=== PATIENT | female | born 1960 | race Caucasian/White ===

== ENCOUNTER 2017-01-02 19:47 | Inpatient (IN) | payer OTHER ==
[~2017-01-02] VITALS: Ht 157.5 cm; Wt 77.2 kg
[2017-01-02] MEDS ORDERED: morphine 4 MG/ML VIAL IV STA (23:00)
[2017-01-02] MEDS ORDERED: FAMOTIDINE 20 MG INJ IV STA (23:00)
[2017-01-02] MEDS ORDERED: SOD CHLORIDE 0.9% 500 ML IV STA (23:00)
[2017-01-02] MEDS ORDERED: ONDANSETRON 4 MG INJ IV STA (23:00)
[2017-01-02] MEDS ORDERED: LIDOCAINE/MYLANTA 40 ML BTL PO STA (23:00)
[2017-01-02 23:15] VITALS: TEMP 99.7
--- NOTE | 2017-01-02 23:44 | RADRPT ---
PROCEDURE: US Abdomen (right upper quadrant). CLINICAL INDICATION: Right upper quadrant abdomen pain. TECHNIQUE: Multiple real-time longitudinal and transverse images of the right upper quadrant of th e abdomen were acquired utilizing a curved array transducer. Images were reviewed on a high-resoluti on PACS workstation. COMPARISON: None FINDINGS: The liver is enlarged and diffusely increased in echogenicity. There is no focal hepatic lesion. Color Doppler and pulsed Doppler sonography demonstrate normal a ntegrade flow in the portal vein. Gallstones are present in the gallbladder. There is no gallbladder wall thickening. There is no per icholecystic fluid collection. The bile ducts are normal with the common bile duct measuring 5.3 mm in diameter. The visualized portions of the pancreas are unremarkable with obscuration of the tail of the pancrea s. No free fluid is present. The right kidney measures 10.1 cm. There is normal echogenicity of the right kidney. There is no perinephric fluid collection. No hydronephrosis, mass, or calculus is seen. IMPRESSION: 1. Hepatomegaly. 2. Fatty metamorphosis of the liver. 3. Gallstones in the gallbladder. No evidence of cholecystitis. 4. Otherwise unremarkable right upper quadrant abdomen ultrasound. RPTAT: QQ .Marquez Senior MD, MD Date Time Electronically viewed and signed by .Marquez Senior MD, on 01/02/2017 23:44 .R/
[2017-01-03] MEDS ORDERED: OMEG1CAP2 PO (01:28)
[2017-01-03] MEDS ORDERED: MULTI PO (01:28)
--- NOTE | 2017-01-03 02:02 | ERD ---
ER Documentation Chief Complaint Chief Complaint Epigastric pain radiating to back since 0700. emesis x1 this am HPI This is a 56-year-old female comes with epigastric pain radiating to the back since 700. Emesis 1. Non-bilious. No fevers no chills. Pain is mild to moderate intensity with no radiations. Patient says she has had this pain on and off in the past few weeks. Has tried Tylenol with no relief. ROS All systems reviewed and are negative except as per history of present illness. Medications Home Meds Reported Medications [place]-3 Acid Ethyl Esters (Lovaza) 1 Gm Capsule, 4 GM PO DAILY, CAP 01/03/17 Multivitamins* (Theragran*) 1 Tab Tab, 1 TAB PO DAILY, TAB 01/03/17 Allergies Allergies: Coded Allergies: No Known Allergy (Unverified , 01/02/17) PMhx/Soc History of Surgery: No Anesthesia Reaction: No Hx Neurological Disorder: No Hx Respiratory Disorders: No Hx Cardiac Disorders: No Hx Psychiatric Problems: No Hx Miscellaneous Medical Probl: No Hx Alcohol Use: Yes (Socially) Hx Substance Use: No Hx Tobacco Use: No Smoking Status: Never smoker Physical Exam Vitals Vital Signs Date Time Temp Pulse Resp B/P Pulse Ox O2 Delivery O2 Flow Rate FiO2 01/02/17 23:15 99.7 80 18 116/64 95 Room Air 01/02/17 20:29 102.1 108 16 125/67 98 Physical Exam Const: [] Head: Atraumatic Eyes: Normal Conjunctiva ENT: Normal External Ears, Nose and Mouth. Neck: Full range of motion..~ No meningismus. Resp: Clear to auscultation bilaterally Cardio: Regular rate and rhythm, no murmurs Abd: Soft, non tender, non distended. Normal bowel sounds Skin: No petechiae or rashes Back: No midline or flank tenderness Ext: No cyanosis, or edema Neur: Awake and alert Psych: Normal Mood and Affect Result Diagram: 01/02/17230901/02/172309 Results 24 hrs Laboratory Tests Test 01/02/17 23:10 01/02/17 23:20 White Blood Count 17.910^3/ul Red Blood Count 4.3610^6/ul Hemoglobin 13.0g/dl Hematocrit 38.2% Mean Corpuscular Volume 87.6fl Mean Corpuscular Hemoglobin 29.8pg Mean Corpuscular Hemoglobin Concent 34.0g/dl Red Cell Distribution Width 12.0% Platelet Count 33338^3/UL Mean Platelet Volume 9.7fl Neutrophils % 91.9% Lymphocytes % 2.5% Monocytes % 4.7% Eosinophils % 0.0% Basophils % 0.3% Nucleated Red Blood Cells % 0.0/100WBC Neutrophils # 16.510^3/ul Lymphocytes # 0.510^3/ul Monocytes # 0.810^3/ul Eosinophils # 0.010^3/ul Basophils # 0.110^3/ul Nucleated Red Blood Cells # 0.010^3/ul Sodium Level 139mmol/L Potassium Level 3.8mmol/L Chloride Level 101mmol/L Carbon Dioxide Level 23mmol/L Anion Gap 19 Blood Urea Nitrogen 14mg/dl Creatinine 0.60mg/dl Glucose Level 161mg/dl Calcium Level 10.2mg/dl Total Bilirubin 1.7mg/dl Direct Bilirubin 0.80mg/dl Indirect Bilirubin 0.9mg/dl Aspartate Amino Transf (AST/SGOT) 721IU/L Alanine Aminotransferase (ALT/SGPT) 470IU/L Alkaline Phosphatase 214IU/L Troponin I < 0.012ng/ml Total Protein 8.6g/dl Albumin 4.5g/dl Globulin 4.10g/dl Albumin/Globulin Ratio 1.09 Lipase 62U/L Urine Color JAZMYN Urine Clarity CLEAR Urine pH 6.0 Urine Specific [place] 1.024 Urine Ketones NEGATIVEmg/dL Urine Nitrite NEGATIVEmg/dL Urine Bilirubin 1+mg/dL Urine Urobilinogen 2+mg/dL Urine Leukocyte Esterase NEGATIVELeu/ul Urine Microscopic RBC 9/HPF Urine Microscopic WBC 2/HPF Urine Squamous Epithelial Cells FEW/HPF Urine Mucus FEW/HPF Urine Hemoglobin NEGATIVEmg/dL Urine Glucose NEGATIVEmg/dL Urine Total Protein 1+mg/dl Current Medications Medications (Trade) Dose Ordered Sig/Loreta Route PRN Reason Start Time Stop Time Status Last Admin Dose Admin Sodium Chloride (NS) 500 ml @ 500 mls/hr Q1H STAT IV 01/02/17 23:00 01/02/17 23:59 DC 01/02/17 23:36 Morphine Sulfate (morphine) 4 mg ONCE STAT IV 01/02/17 23:00 01/02/17 23:13 DC 01/02/17 23:36 Ondansetron HCl (Zofran Inj) 4 mg ONCE STAT IV 01/02/17 23:00 01/02/17 23:13 DC 01/02/17 23:36 Famotidine (Pepcid Iv) 20 mg ONCE STAT IV 01/02/17 23:00 01/02/17 23:13 DC 01/02/17 23:36 Miscellaneous Medication (Gi Cocktail (2)) 40 ml ONCE STAT PO 01/02/17 23:00 01/02/17 23:13 DC 01/02/17 23:36 Procedures/MDM Medical decision-makin-year-old female with biliary colic consistent with choledocholithiasis given the elevation of her LFTs and elevation of bilirubin. Patient will be admitted to Dr. Loya and Dr. Sorto has been consulted for surgery Departure Diagnosis: Primary Impression: Choledocholithiasis Condition: Serious BURAK RODRIGES Jan 03, 2017 02:02
[2017-01-03 02:27] VITALS: BP 112/58; PULSE 83; RESP 18; Ht 157.5 cm; Wt 77.2 kg
[2017-01-03] MEDS ORDERED: ACETAMINOPHEN 325 MG TAB PO PRN (03:00)
[2017-01-03] MEDS ORDERED: ONDANSETRON 4 MG INJ IV PRN (03:00)
[2017-01-03] MEDS ORDERED: NACL 0.9% 3 ML SYG IV SCH (03:00)
[2017-01-03] MEDS ORDERED: HYDROmorphONE 0.5 MG/0.5 ML SYG IV PRN (03:00)
[2017-01-03] MEDS: SOD CHLORIDE 0.9% 1,000 ML IV SCH ×2 (03:21→18:17)
[2017-01-03] MEDS: PIPER-TAZO 3.375 GM IV (PMX) 100 ML IVPB SCH ×4 (03:27→18:17)
--- NOTE | 2017-01-03 03:48 | HP ---
Date/Time of Note Date/Time of Note DATE: 01/03/17 TIME: 03:35 Assessment/Plan VTE Prophylaxis VTE Prophylaxis Intervention: SCD's Lines/Catheters IV C[facility]ter [facility] Saline Lock Assessment/Plan Chief Complaint/Hosp Course This is a 56-year-old female being admitted to the [facility] floor for: #1 right upper quadrant pain: Symptomatic cholelithiasis and/or choledocholithiasis. Patient does not have any fevers at this time or any jaundice. Ultrasound does not show any evidence of cholecystitis or ductal dilatation. She is not confused making acute cholangitis less likely at this time. She does though however have a elevated white blood cell count and transaminitis. At the current time we will treat with Zosyn. Will obtain an MRCP. Surgery was consulted via the ED. We will also consult GI. NPO. Normal saline iv fluid maintenance. zofran for nausea. Dilaudid for pain. #2 leukocytosis: Patient has elevated white blood cell count of 17,000. She does not have a fever and no signs of cholecystitis on ultrasound. However with signs of gallstones and transaminitis will at the current time treat with antibiotics for possible surgical prophylaxis as well as for possible progression to cholecystitis. Repeat in the a.m. #3 obesity: We will check a hemoglobin A1c, lipid panel, TSH #4 DVT GI prophylaxis: SCDs, famotidine Further treatment strategy will be implemented as per the clinical course Problems: HPI/ROS Admit Date/Time Admit Date/Time Jan 03, 2017 at 01:33 Hx of Present Illness Chief complaint: Right upper quadrant abdominal pain This is a 56-year-old female comes with right upper quadrant radiating to the back since 700. Emesis 1. Non-bilious. Denies fevers but did have some chills. Pain is mild to moderate intensity with no radiations. Patient says she has had this pain on and off in the past few weeks. Has tried Tylenol with no relief. Patient states that she had a similar pain before but it was 3 months ago. Denies any yellow color of the skin or the eyes. Allergies: NKDA Medications: None ROS Const: As per HPI Eyes : No pain discharge or redness or change in visual acuity ENT: No pain, sore throat, congestion, congestion, dysphagia or discharge Respiratory: No shortness of breath, cough, sputum, wheezing, or pleuritic pain Cardiovascular: No chest pain, palpitation, PND, or edema GI : As per HPI Genitourinary: No dysuria, hematuria, flank pain , discharge or CVA tenderness Musculoskeletal: No joint pain, back pain, neck pain, restricted range of motion in neck or joints Skin: No rash, bruising or hives Neuro: No headache, dizziness, syncope, seizure, focal weakness Endocrine: No polyuria, polydipsia, temperature intolerance Psych: No hallucination, depression, anxiety or suicidal ideation PMH/Family/Social Past Medical History Medical History: no pertinent history Past Surgical History Past Surgical Hx: no surgical history Family History Significant Family History: no pertinent family hx Social History Alcohol Use: none Smoking Status: Never smoker Drug Use: none Exam/Review of Systems Vital Signs Vitals Vital Signs Date Time Temp Pulse Resp B/P Pulse Ox O2 Delivery O2 Flow Rate FiO2 01/03/17 02:27 98.4 83 18 112/58 94 Room Air Exam Exam General: Patient is lying comfortably in bed in no acute distress. Nontoxic- appearing HEENT: Atraumatic, normocephalic. The pupils are equal, round and reactive. Extraocular motor are intact Neck: Supple with full range of motion. No rigidity or meningismus Chest: Nontender Lungs: Clear to auscultation bilaterally no crackles rales or wheezing Heart: Normal S1-S2, Regular rhythm and rate. No murmur, S3, or S4 Abdomen: Soft, mild tenderness to palpation of the right upper quadrant, nondistended, normal bowel sounds, no guarding . No CVA tenderness. Extremities: Normal to inspection, no edema no cyanosis Neurologic: Normal mental status, speech normal, cranial nerves II through XII are intact, motor and sensory are intact, no focal weakness Additional Comments PROCEDURE: US Abdomen (right upper quadrant). CLINICAL INDICATION: Right upper quadrant abdomen pain. TECHNIQUE: Multiple real-time longitudinal and transverse images of the right upper quadrant of the abdomen were acquired utilizing a curved array transducer. Images were reviewed on a high-resolution PACS workstation. COMPARISON: None FINDINGS: The liver is enlarged and diffusely increased in echogenicity. There is no focal hepatic lesion. Color Doppler and pulsed Doppler sonography demonstrate normal antegrade flow in the portal vein. Gallstones are present in the gallbladder. There is no gallbladder wall thickening. There is no pericholecystic fluid collection. The bile ducts are normal with the common bile duct measuring 5.3 mm in diameter. The visualized portions of the pancreas are unremarkable with obscuration of the tail of the pancreas. No free fluid is present. The right kidney measures 10.1 cm. There is normal echogenicity of the right kidney. There is no perinephric fluid collection. No hydronephrosis, mass, or calculus is seen. IMPRESSION: 1. Hepatomegaly. 2. Fatty metamorphosis of the liver. 3. Gallstones in the gallbladder. No evidence of cholecystitis. 4. Otherwise unremarkable right upper quadrant abdomen ultrasound. RPTAT: QQ .Marquez Senior MD, MD Date Time Electronically viewed and signed by .Marquez Senior MD, MD on 01/02/2017 23:44 .R/ CC: BURAK RODRIGES Labs Result Diagram: 01/02/17230901/02/172309 Medications Medications Current Medications Sodium Chloride (NS) 1,000 ml @ 80 mls/hr [id number] IV Last administered on 03:21; Admin Dose 80 MLS/HR; Start 01/03/17 at 02:52 Ondansetron HCl (Zofran Inj) 4 mg Q6H PRN IV NAUSEA AND/OR VOMITING; Start at 03:00 Acetaminophen (Tylenol Tab) 650 mg Q6H PRN PO PAIN LEVEL 1-3 OR FEVER; Start 01/03/17 at 03:00 Hydromorphone HCl (Dilaudid) 0.5 mg Q4H PRN IV SEVERE PAIN LEVEL 7-10; Start 01/03/17 at 03:00 Pantoprazole 40 mg 40 mg DAILY@06 IV ; Start 01/03/17 at 06:00 Piperacillin Sod/ Tazobactam Sod (Zosyn 3.375gm/ 100 ml (Pmx)) 100 ml @ 200 mls /hr Q6 IVPB Last administered on 01/03/17 03:27; Admin Dose 200 MLS/HR; Start 01/03/17 at 03:30 COLLEEN OROZCO Jan 03, 2017 03:45
[2017-01-03] MEDS: PANTOPRAZOLE 40 MG INJ IV SCH (06:07)
[2017-01-03 07:57] VITALS: BP 111/58; RESP 18
--- NOTE | 2017-01-03 13:12 | CONS ---
Date/Time of Note Date/Time of Note DATE: 01/03/17 TIME: 13:06 Assessment/Plan Assessment/Plan Chief Complaint/Hosp Course 1. Symptomatic cholelithiasis possible cholecystitis: r/b/a of lap ashley discussed w patient and ; patient decided to proceed w surgery -npo -lap ashley -ivf -abx -pain management 2. Transaminitis with elevated bili: ?choledocholithiasis: improving -as above -mrcp pending 3. Hepatomegaly with fatty liver -medical management -eventual weight loss; diet modification 4. Leukocytosis: likely 2/2 #1 -as above 5. Obesity: bmi 31 -diet and exercise optimization -encourage weight loss 6. Abdominal pain: 2/2 #1 -as above Thank you. Patient seen and examined in collaboration with Dr. Nahun Sorto. Problems: Consultation Date/Type/Reason Admit Date/Time Jan 03, 2017 at 01:33 Date of Consultation: Jan 03, 2017 Type of Consultation: Surgical Reason for Consultation gallstones Referring Provider: COLLEEN OROZCO Hx of Present Illness Lennie Shaw is a 56 yo woman who presented to the ED with complaints of abdominal pain x 1 day. Pain was described as strong and radiating from mid- abdomen to right flank and back. Associated symptoms include vomiting non- bloody bilious emesis.as well as chills. Has tried Tylenol with no relief. Therapies attempted include Tylenol. Gallbladder ultrasound shows cholelithiasis. General surgery was asked to evaluate. Constitutional: chills, No febrile Eyes: No discharge, No visual change ENT: No congestion Respiratory: No cough, No shortness of breath Cardiovascular: No chest pain, No edema, No lightheadedness Gastrointestinal: decreased appetite, other (as above) Genitourinary: No discharge, No dysuria, No hematuria Musculoskeletal: No back pain, No neck pain Skin: No bruising, No pruritis Neurologic: No confusion, No focal-weakness Endocrine: No polyuria Psychological: nl mood/affect, No anxiety, No confusion Past Medical History obesity Past Surgical History Past Surgical Hx: no surgical history Social History Alcohol Use: none Smoking Status: Never smoker Drug Use: none Exam/Review of Systems Vital Signs Vitals Vital Signs Date Time Temp Pulse Resp B/P Pulse Ox O2 Delivery O2 Flow Rate FiO2 01/03/17 07:57 99.0 90 18 111/58 96 01/03/17 02:27 Room Air Intake and Output 01/02/17 01/02/17 01/03/17 15:00 23:00 07:00 Intake Total 80 ml Balance 80 ml Exam Constitutional: alert, oriented Psych: nl mood/affect Head: atraumatic, normocephalic Eyes: nl lids, nl sclera ENMT: mucosa pink and moist, nl nasal mucosa & septum Neck: non-tender, supple Respiratory: clear to auscultation, normal air movement Cardiovascular: nl pulses, regular rate and rhythm Gastrointestinal: non-tender, soft, No tender Genitourinary - Female: nl adnexae, nl external genitalia Musculoskeletal: nl extremities to inspection, nl gait and stance Extremities: normal pulses Neurological: nl mental status, nl speech, nl strength Skin: nl turgor, rash or lesions Lymph: nl lymph nodes Results Result Diagram: 01/03/17 0542 01/03/17 0541 Results 24 hrs Laboratory Tests Test 01/02/17 23:10 01/02/17 23:20 01/03/17 05:41 01/03/17 05:42 White Blood Count 17.9 H 13.3 #H Red Blood Count 4.36 3.96 L Hemoglobin 13.0 12.2 Hematocrit 38.2 35.4 L Mean Corpuscular Volume 87.6 89.4 Mean Corpuscular Hemoglobin 29.8 30.8 Mean Corpuscular Hemoglobin Concent 34.0 34.5 Red Cell Distribution Width 12.0 12.2 Platelet Count 321 295 Mean Platelet Volume 9.7 9.9 Neutrophils % 91.9 H 89.5 H Lymphocytes % 2.5 L 5.1 L Monocytes % 4.7 4.5 Eosinophils % 0.0 0.1 Basophils % 0.3 0.2 Nucleated Red Blood Cells % 0.0 0.0 Neutrophils # 16.5 H 11.9 H Lymphocytes # 0.5 L 0.7 L Monocytes # 0.8 0.6 Eosinophils # 0.0 0.0 Basophils # 0.1 0.0 Nucleated Red Blood Cells # 0.0 0.0 Sodium Level 139 143 Potassium Level 3.8 3.8 Chloride Level 101 105 Carbon Dioxide Level 23 28 Anion Gap 19 H 14 Blood Urea Nitrogen 14 11 Creatinine 0.60 0.65 Glucose Level 161 124 Calcium Level 10.2 9.4 Total Bilirubin 1.7 H 2.6 H Direct Bilirubin 0.80 H 1.40 #H Indirect Bilirubin 0.9 1.2 H Aspartate Amino Transf (AST/SGOT) 721 H 612 H Alanine Aminotransferase (ALT/SGPT) 470 H 457 H Alkaline Phosphatase 214 H 181 H Troponin I < 0.012 Total Protein 8.6 H 7.3 # Albumin 4.5 3.7 Globulin 4.10 H 3.60 H Albumin/Globulin Ratio 1.09 1.02 Lipase 62 Urine Color JAZMYN Urine Clarity CLEAR Urine pH 6.0 Urine Specific [place] 1.024 Urine Ketones NEGATIVE Urine Nitrite NEGATIVE Urine Bilirubin 1+ H Urine Urobilinogen 2+ H Urine Leukocyte Esterase NEGATIVE Urine Microscopic RBC 9 H Urine Microscopic WBC 2 Urine Squamous Epithelial Cells FEW Urine Mucus FEW A Urine Hemoglobin NEGATIVE Urine Glucose NEGATIVE Urine Total Protein 1+ H Prothrombin Time 14.5 H Prothrombin Time Ratio 1.1 INR International Normalized Ratio 1.13 Activated Partial Thromboplast Time 29.8 Triglycerides Level 138 Cholesterol Level 146 LDL Cholesterol, Calculated 72 HDL Cholesterol 46 Cholesterol/HDL Ratio 3.1 Thyroid Stimulating Hormone (TSH) 0.501 Hemoglobin A1c 6.2 H Medications Medications Current Medications Sodium Chloride (NS) 1,000 ml @ 80 mls/hr [id number] IV Last administered on 03:21; Admin Dose 80 MLS/HR; Start 01/03/17 at 02:52 Ondansetron HCl (Zofran Inj) 4 mg Q6H PRN IV NAUSEA AND/OR VOMITING; Start at 03:00 Acetaminophen (Tylenol Tab) 650 mg Q6H PRN PO PAIN LEVEL 1-3 OR FEVER; Start 01/03/17 at 03:00 Hydromorphone HCl (Dilaudid) 0.5 mg Q4H PRN IV SEVERE PAIN LEVEL 7-10; Start 01/03/17 at 03:00 Pantoprazole 40 mg 40 mg DAILY@06 IV Last administered on 01/03/17 06:07; Admin Dose 40 MG; Start 01/03/17 at 06:00 Piperacillin Sod/ Tazobactam Sod (Zosyn 3.375gm/ 100 ml (Pmx)) 100 ml @ 200 mls /hr Q6 IVPB Last administered on 10/31/17at 11:36; Admin Dose 200 MLS/HR; Start 01/03/17 at 03:30 Influenza Virus Vaccine (Fluzone) 0.5 ml ONCE ONCE IM* ; Start 01/04/17 at 09:00 ; Stop 01/04/17 at 09:01 KATERIN CHERY NP Jan 03, 2017 13:12
[2017-01-03 14:27] VITALS: BP 104/57; RESP 18
--- NOTE | 2017-01-03 15:18 | RADRPT ---
PROCEDURE: MR Abdomen. CLINICAL INDICATION: Abdominal pain. TECHNIQUE: MRI abdomen without contrast was performed on the a high-resolution, high [facility] scanner. Patient was examined without IV contrast. Images were reviewed on a [employer] PACS workstation. COMPARISON: Correlation with ultrasound from 01/02/2017. FINDINGS: MRI Abdomen: The liver is enlarged measuring 21.5 cm in size and homogeneous in signal intensity. There is yared l signal intensity within the liver. No liver mass lesion or intrahepatic biliary dilatation is see n. Several stones are present within the gallbladder, ranging in size from 4 - 24 mm. There is gallblad ramon wall edema. No significant pericholecystic fluid is seen. The biliary tree is not dilated. No intrahepatic nor extrahepatic biliary dilatation is present. The spleen is normal in size and homogeneous in signal intensity. The stomach is partially collapse d but grossly unremarkable. The pancreas, as visualized, is equally unremarkable. No pancreatic le art is seen. The adrenal glands and kidneys are symmetrically normal. The aorta is of normal lamar marielos. There is no retroperitoneal lymphadenopathy. The bowel and mesentery, as visualized, are all unremarkable. IMPRESSION: 1. Cholelithiasis with gallbladder wall edema. The findings may represent acute calculus cholecysti tis in the correct clinical setting. No evidence of choledocholithiasis or biliary obstruction. 2. Hepatomegaly. RPTAT: HRAA .Delvis Maravilla MD, MD Date Time Electronically viewed and signed by .Delvis Maravilla MD, MD on 01/03/2017 15:18 .A/
--- NOTE | 2017-01-03 15:23 | CONS ---
Date/Time of Note Date/Time of Note DATE: 01/03/17 TIME: 14:54 Assessment/Plan Assessment/Plan Chief Complaint/Hosp Course Assessment: Right upper quadrant pain R/o Symptomatic cholelithiasis vs choledocholithiasis. Leukocytosis/improved Transaminitis/improved Plan: Pending results of MRCP possible ERCP tomorrow Endoscopy - risks/benefits/alternatives/indications of procedure and sedation/ anesthesia discussed with patient who states understanding and gives informed consent to proceed. PARQ held and questions were answered. 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 Abdominal pain was described an "inflammatory pain" not relieved or aggravated by anything in particular. Upon workup labs show leukocytosis 17,000, elevated amino transferase (AST 721, and ALT 6120), bilirubin of 1.7 lipase of 62. With reevaluation WBCs have decreased to 13.3 AST and ALT have also decreased, however bilirubin has increased to 2.6. An abdominal ultrasound was obtained and reveals, hepatomegaly, with fatty liver, gallstones in the gallbladder without evidence of cholecystitis, otherwise normal. MRCP ordered and currently pending. Evaluation patient states right upper quadrant pain as decreased and is currently 1/10 on the pain scale. No further complaints of nausea/vomiting, she denies constipation, diarrhea, hematemesis, hematochezia, or unintentional weight loss. He has never had a colonoscopy and there is no family history of colon cancer. With clinical presentation will proceed with ERCP if the MRCP is positive for choledocholithiasis. Discussed plan with patient who is in agreement Past Medical History: Obesity Allergies: No known allergies Family History: No family history of colon cancer Social History: Denies EtOH Denies smoking Denies drug use PHYSICAL EXAMINATION: GENERAL: Well developed, well nourished, alert & oriented x 3, in no acute distress SKIN: No lesions, no stigmata chronic liver disease, no evidence of bleeding diathesis LYMPHATIC: No palpable lymphadenopathy. HEAD: Normocephalic, atraumatic, no tenderness. EYES: Pupils equal reactive to light and accommodation, full extraocular movements, sclera clear, non-icteric, no discharge. EARS/NOSE AND THROAT: Ears normal, nose normal, oropharynx normal, oral membranes well hydrated without lesions. NECK: Supple, no masses, thyroid normal, JVP within normal limits, carotids normal without bruits. CHEST: Inspection within normal limits. CARDIOVASCULAR: Heart: Regular rate and rhythm, no murmurs, gallops or rubs. Peripheral pulses present within normal limits, no cyanosis, clubbing or edemas. No pulsatile abdominal mass RESPIRATORY: Lungs clear to auscultation and percussion, no wheezing, no rubs GASTROINTESTINAL AND LIVER: Abdomen: Soft, tenderness, non-distended, no hernias , no masses, no organomegaly, no ascites, no guarding, no rebound tenderness, normoactive bowel sounds. Rectal: Deferred. [no perianal disease, no masses, stool normal, occult blood negative.] GENITOURINARY: Female genitalia within normal limits. EXTREMITIES: No cyanosis, clubbing or edema. Problems: Consultation Date/Type/Reason Admit Date/Time Jan 03, 2017 at 01:33 Date of Consultation: Jan 03, 2017 Type of Consultation: GI Reason for Consultation Right upper quadrant pain Constitutional: chills, No febrile Eyes: No discharge, No visual change ENT: No congestion Respiratory: No cough, No shortness of breath Cardiovascular: No chest pain, No edema, No lightheadedness Gastrointestinal: decreased appetite, other (as above) Genitourinary: No discharge, No dysuria, No hematuria Musculoskeletal: No back pain, No neck pain Skin: No bruising, No pruritis Neurologic: No confusion, No focal-weakness Endocrine: No polyuria Psychological: nl mood/affect Past Surgical History Past Surgical Hx: no surgical history Social History Alcohol Use: none Smoking Status: Never smoker Drug Use: none Exam/Review of Systems Vital Signs Vitals Vital Signs Date Time Temp Pulse Resp B/P Pulse Ox O2 Delivery O2 Flow Rate FiO2 01/03/17 14:27 99.8 86 18 104/57 93 01/03/17 02:27 Room Air Intake and Output 01/02/17 01/02/17 01/03/17 15:00 23:00 07:00 Intake Total 80 ml Balance 80 ml Results Result Diagram: 01/03/17 0542 01/03/17 0541 Results 24 hrs Laboratory Tests Test 01/02/17 23:10 01/02/17 23:20 01/03/17 05:41 01/03/17 05:42 White Blood Count 17.9 H 13.3 #H Red Blood Count 4.36 3.96 L Hemoglobin 13.0 12.2 Hematocrit 38.2 35.4 L Mean Corpuscular Volume 87.6 89.4 Mean Corpuscular Hemoglobin 29.8 30.8 Mean Corpuscular Hemoglobin Concent 34.0 34.5 Red Cell Distribution Width 12.0 12.2 Platelet Count 321 295 Mean Platelet Volume 9.7 9.9 Neutrophils % 91.9 H 89.5 H Lymphocytes % 2.5 L 5.1 L Monocytes % 4.7 4.5 Eosinophils % 0.0 0.1 Basophils % 0.3 0.2 Nucleated Red Blood Cells % 0.0 0.0 Neutrophils # 16.5 H 11.9 H Lymphocytes # 0.5 L 0.7 L Monocytes # 0.8 0.6 Eosinophils # 0.0 0.0 Basophils # 0.1 0.0 Nucleated Red Blood Cells # 0.0 0.0 Sodium Level 139 143 Potassium Level 3.8 3.8 Chloride Level 101 105 Carbon Dioxide Level 23 28 Anion Gap 19 H 14 Blood Urea Nitrogen 14 11 Creatinine 0.60 0.65 Glucose Level 161 124 Calcium Level 10.2 9.4 Total Bilirubin 1.7 H 2.6 H Direct Bilirubin 0.80 H 1.40 #H Indirect Bilirubin 0.9 1.2 H Aspartate Amino Transf (AST/SGOT) 721 H 612 H Alanine Aminotransferase (ALT/SGPT) 470 H 457 H Alkaline Phosphatase 214 H 181 H Troponin I < 0.012 Total Protein 8.6 H 7.3 # Albumin 4.5 3.7 Globulin 4.10 H 3.60 H Albumin/Globulin Ratio 1.09 1.02 Lipase 62 Urine Color JAZMYN Urine Clarity CLEAR Urine pH 6.0 Urine Specific Wanda 1.024 Urine Ketones NEGATIVE Urine Nitrite NEGATIVE Urine Bilirubin 1+ H Urine Urobilinogen 2+ H Urine Leukocyte Esterase NEGATIVE Urine Microscopic RBC 9 H Urine Microscopic WBC 2 Urine Squamous Epithelial Cells FEW Urine Mucus FEW A Urine Hemoglobin NEGATIVE Urine Glucose NEGATIVE Urine Total Protein 1+ H Prothrombin Time 14.5 H Prothrombin Time Ratio 1.1 INR International Normalized Ratio 1.13 Activated Partial Thromboplast Time 29.8 Triglycerides Level 138 Cholesterol Level 146 LDL Cholesterol, Calculated 72 HDL Cholesterol 46 Cholesterol/HDL Ratio 3.1 Thyroid Stimulating Hormone (TSH) 0.501 Hemoglobin A1c 6.2 H Medications Medications Current Medications Sodium Chloride (NS) 1,000 ml @ 80 mls/hr [id number] IV Last administered on 03:21; Admin Dose 80 MLS/HR; Start 01/03/17 at 02:52 Ondansetron HCl (Zofran Inj) 4 mg Q6H PRN IV NAUSEA AND/OR VOMITING; Start at 03:00 Acetaminophen (Tylenol Tab) 650 mg Q6H PRN PO PAIN LEVEL 1-3 OR FEVER; Start 01/03/17 at 03:00 Hydromorphone HCl (Dilaudid) 0.5 mg Q4H PRN IV SEVERE PAIN LEVEL 7-10; Start 01/03/17 at 03:00 Pantoprazole 40 mg 40 mg DAILY@06 IV Last administered on 01/03/17 06:07; Admin Dose 40 MG; Start 01/03/17 at 06:00 Piperacillin Sod/ Tazobactam Sod (Zosyn 3.375gm/ 100 ml (Pmx)) 100 ml @ 200 mls /hr Q6 IVPB Last administered on 01/03/17 11:36; Admin Dose 200 MLS/HR; Start 01/03/17 at 03:30 Influenza Virus Vaccine (Fluzone) 0.5 ml ONCE ONCE IM* ; Start 01/04/17 at 09:00 ; Stop 01/04/17 at 09:01 ALFREDA ZAYAS Jan 03, 2017 15:23
[2017-01-03 20:00] VITALS: BP 120/65; RESP 19
[2017-01-04] MEDS: PIPER-TAZO 3.375 GM IV (PMX) 100 ML IVPB SCH ×5 (00:17→23:46)
[2017-01-04 02:00] VITALS: BP 116/62; RESP 19
[2017-01-04] MEDS: SOD CHLORIDE 0.9% 1,000 ML IV SCH ×3 (05:42→20:45)
[2017-01-04] MEDS: PANTOPRAZOLE 40 MG INJ IV SCH (05:42)
[2017-01-04 07:35] VITALS: BP 110/63; RESP 20
[2017-01-04] MEDS ORDERED: INFLUENZA VIRUS VACCINE 0.5 ML (DISPENSING) IM* ONE (09:00)
--- NOTE | 2017-01-04 11:51 | PN ---
Date/Time of Note Date/Time of Note DATE: 01/04/17 TIME: 11:43 Assessment/Plan VTE Prophylaxis VTE Prophylaxis Intervention: ambulation Lines/Catheters [facility] Peripheral IV Assessment/Plan Chief Complaint/Hosp Course 1. Symptomatic cholelithiasis possible acute calculus cholecystitis -Surgery evaluation appreciated. Plan is eventual lap versus open cholecystectomy, tentatively scheduled on 01/06/2017. -Start clear diet as tolerated if okay with surgery. Continue IV fluids, antibiotics and pain control. 2. Transaminase elevation with hyperbilirubinemia, likely secondary to #1. MRCP did not reveal any choledocholithiasis. -GI evaluation appreciated and we will follow their recommendations. - For now, we will monitor LFTs and obtain a Hep panel.F/u with intraoperative liver biopsy 3.Leukocytosis, likely secondary to #1. Resolved. -Treatment per #1. 4. Hepatomegaly with fatty liver -Lifestyle modification advised. 5. Obesity -Weight reduction advised. Patient is seen in collaboration with Dr. Corley. Problems: Subjective 24 Hr Interval Summary Free Text/Dictation No acute distress. Exam/Review of Systems Vital Signs Vitals Vital Signs Date Time Temp Pulse Resp B/P Pulse Ox O2 Delivery O2 Flow Rate FiO2 01/04/17 07:35 98.0 71 20 110/63 97 01/03/17 02:27 Room Air Intake and Output 01/03/17 01/03/17 01/04/17 15:00 23:00 07:00 Intake Total 100 ml 1000 ml 1200 ml Balance 100 ml 1000 ml 1200 ml Exam General: Well developed,adequately built obese female, not in any acute distress . HEENT: Normocephalic, Atraumatic, No laceration or hematoma; Eyes: PEERL, Conjunctiva clear,Mildly icteric sclera. Neck: Supple without any lymphadenopathy, nontender, no JVD, no carotid bruits, trachea midline, no thyromegaly Cardiac: S1, S2 auscultated, regular rhythm and rate, no mumurs or gallop Pulmonary: Normal respiratory effort. Chest clear to auscultation bilaterally, no adventitious breath sounds GI: With right upper quadrant tenderness. Otherwise, abdomen normal to inspection. Soft,non- distended, no masses, no rebound tenderness or guarding. Bowel sounds active on all four quadrants Genitourinary: Deferred Extremities: No cyanosis, clubbing, or edema. Pulses [2+] bilaterally. Full ROM on all four extremities. No focal weakness appreciated. Neurologic: Alert to person, place, time, and situation. Affect appropriate, intact sensation. Skin: Clean,dry, and intact. No ecchymosis, no rashes, or lesions Results Result Diagram: 01/04/17 0531 01/04/17 0531 Results 24 hrs Laboratory Tests Test 01/04/17 05:31 White Blood Count 6.6 # Red Blood Count 3.97 L Hemoglobin 11.8 L Hematocrit 36.3 L Mean Corpuscular Volume 91.4 Mean Corpuscular Hemoglobin 29.7 Mean Corpuscular Hemoglobin Concent 32.5 Red Cell Distribution Width 12.9 Platelet Count 269 Mean Platelet Volume 10.0 Neutrophils % 65.2 Lymphocytes % 22.3 Monocytes % 6.4 Eosinophils % 4.9 Basophils % 0.6 Nucleated Red Blood Cells % 0.0 Neutrophils # 4.3 Lymphocytes # 1.5 Monocytes # 0.4 Eosinophils # 0.3 Basophils # 0.0 Nucleated Red Blood Cells # 0.0 Sodium Level 146 H Potassium Level 3.6 Chloride Level 106 Carbon Dioxide Level 26 Anion Gap 18 H Blood Urea Nitrogen 10 Creatinine 0.70 Glucose Level 104 Calcium Level 8.7 Total Bilirubin 3.2 H Direct Bilirubin 2.30 #H Indirect Bilirubin 0.9 Aspartate Amino Transf (AST/SGOT) 241 H Alanine Aminotransferase (ALT/SGPT) 333 H Alkaline Phosphatase 207 H Total Protein 7.2 Albumin 4.1 Globulin 3.10 Albumin/Globulin Ratio 1.32 Medications Medications Current Medications Sodium Chloride (NS) 1,000 ml @ 80 mls/hr [id number] IV Last administered on 01/04t 05:42; Admin Dose 80 MLS/HR; Start 01/03/17 at 02:52 Ondansetron HCl (Zofran Inj) 4 mg Q6H PRN IV NAUSEA AND/OR VOMITING; Start at 03:00 Acetaminophen (Tylenol Tab) 650 mg Q6H PRN PO PAIN LEVEL 1-3 OR FEVER; Start 01/03/17 at 03:00 Hydromorphone HCl (Dilaudid) 0.5 mg Q4H PRN IV SEVERE PAIN LEVEL 7-10; Start 01/03/17 at 03:00 Pantoprazole 40 mg 40 mg DAILY@06 IV Last administered on 01/04/17 05:42; Admin Dose 40 MG; Start 01/03/17 at 06:00 Piperacillin Sod/ Tazobactam Sod (Zosyn 3.375gm/ 100 ml (Pmx)) 100 ml @ 200 mls /hr Q6 IVPB Last administered on 01/04/17 05:43; Admin Dose 200 MLS/HR; Start 01/03/17 at 03:30 IVELISSE LOMELI NP Jan 04, 2017 11:51
--- NOTE | 2017-01-04 12:15 | PN ---
Date/Time of Note Date/Time of Note DATE: 01/04/17 TIME: 12:10 Assessment/Plan Lines/Catheters IV Catheter Type (from Nrs): Peripheral IV Assessment/Plan Chief Complaint/Hosp Course 1. Symptomatic cholelithiasis possible cholecystitis: r/b/a of lap ashley discussed w patient and ; patient decided to proceed w surgery- scheduled for monday -lap ashley -ivf -abx -pain management 2. Transaminitis with elevated bili: no choledocholithiasis per MRI: improving -as above -further workup for liver disease per gi 3. Hepatomegaly with fatty liver -medical management -eventual weight loss; diet modification 4. Leukocytosis: likely 2/2 #1 normalized -as above 5. Obesity: bmi 31 -diet and exercise optimization -encourage weight loss 6. Abdominal pain: 2/2 #1: improved -as above 7. Hypernatremia: -sodium optimization; judicious fluids Thank you. Patient seen and examined in collaboration with Dr. Nahun Sorto. Problems: Subjective 24 Hr Interval Summary Feels well. No c/o abdominal pain. Pending lap ashley monday. MRCP noted. No fevers, chills, sob, congested cough, cp, palpitations, leija, dizziness, n/v/d/ dysuria. Exam/Review of Systems Vital Signs Vitals Vital Signs Date Time Temp Pulse Resp B/P Pulse Ox O2 Delivery O2 Flow Rate FiO2 01/04/17 07:35 98.0 71 20 110/63 97 01/03/17 02:27 Room Air Intake and Output 01/03/17 01/03/17 01/04/17 15:00 23:00 07:00 Intake Total 100 ml 1000 ml 1200 ml Balance 100 ml 1000 ml 1200 ml Exam Free Text/Dictation Constitutional: alert, oriented Psych: nl mood/affect Head: atraumatic, normocephalic Eyes: nl lids, nl sclera ENMT: mucosa pink and moist, nl nasal mucosa & septum; eyes slightly icteric Neck: non-tender, supple Respiratory: clear to auscultation, normal air movement Cardiovascular: nl pulses, regular rate and rhythm Gastrointestinal: non-tender, soft, negative long's on palpation No tender Genitourinary - Female: nl adnexae, nl external genitalia Musculoskeletal: nl extremities to inspection, nl gait and stance Extremities: normal pulses Neurological: nl mental status, nl speech, nl strength Skin: nl turgor, rash or lesions Lymph: nl lymph nodes Results Result Diagram: 01/04/17 0531 01/04/17 0531 KATERIN CHERY NP Jan 04, 2017 12:15
--- NOTE | 2017-01-04 14:00 | PN ---
Date/Time of Note Date/Time of Note DATE: 01/04/17 TIME: 13:59 Assessment/Plan VTE Prophylaxis VTE Prophylaxis Intervention: SCD's Lines/Catheters IV Catheter Type (from Nrs): Peripheral IV Assessment/Plan Chief Complaint/Hosp Course Assessment: Right upper quadrant pain/improving R/o Symptomatic cholelithiasis vs choledocholithiasis. Leukocytosis/improved Transaminitis/improved Plan: MRCP- negative Plan is for laparoscopic cholecystectomy on Monday Transaminitis continue to improve- bili elevated- will monitor Patient seen in collaboration with PHYSICAL EXAMINATION: GENERAL: Well developed, well nourished, alert & oriented x 3, in no acute distress SKIN: No lesions, no stigmata chronic liver disease, no evidence of bleeding diathesis LYMPHATIC: No palpable lymphadenopathy. HEAD: Normocephalic, atraumatic, no tenderness. EYES: Pupils equal reactive to light and accommodation, full extraocular movements, sclera clear, non-icteric, no discharge. EARS/NOSE AND THROAT: Ears normal, nose normal, oropharynx normal, oral membranes well hydrated without lesions. NECK: Supple, no masses, thyroid normal, JVP within normal limits, carotids normal without bruits. CHEST: Inspection within normal limits. CARDIOVASCULAR: Heart: Regular rate and rhythm, no murmurs, gallops or rubs. Peripheral pulses present within normal limits, no cyanosis, clubbing or edemas. No pulsatile abdominal mass RESPIRATORY: Lungs clear to auscultation and percussion, no wheezing, no rubs GASTROINTESTINAL AND LIVER: Abdomen: Soft, tenderness, non-distended, no hernias , no masses, no organomegaly, no ascites, no guarding, no rebound tenderness, normoactive bowel sounds. Rectal: Deferred. [no perianal disease, no masses, stool normal, occult blood negative.] GENITOURINARY: Female genitalia within normal limits. EXTREMITIES: No cyanosis, clubbing or edema. Problems: Exam/Review of Systems Vital Signs Vitals Vital Signs Date Time Temp Pulse Resp B/P Pulse Ox O2 Delivery O2 Flow Rate FiO2 01/04/17 07:35 98.0 71 20 110/63 97 01/03/17 02:27 Room Air Intake and Output 01/03/17 01/03/17 01/04/17 15:00 23:00 07:00 Intake Total 100 ml 1000 ml 1200 ml Balance 100 ml 1000 ml 1200 ml Results Result Diagram: 01/04/1731 01/04/1731 Results 24 hrs Laboratory Tests Test 01/04/17 05:31 White Blood Count 6.6 # Red Blood Count 3.97 L Hemoglobin 11.8 L Hematocrit 36.3 L Mean Corpuscular Volume 91.4 Mean Corpuscular Hemoglobin 29.7 Mean Corpuscular Hemoglobin Concent 32.5 Red Cell Distribution Width 12.9 Platelet Count 269 Mean Platelet Volume 10.0 Neutrophils % 65.2 Lymphocytes % 22.3 Monocytes % 6.4 Eosinophils % 4.9 Basophils % 0.6 Nucleated Red Blood Cells % 0.0 Neutrophils # 4.3 Lymphocytes # 1.5 Monocytes # 0.4 Eosinophils # 0.3 Basophils # 0.0 Nucleated Red Blood Cells # 0.0 Sodium Level 146 H Potassium Level 3.6 Chloride Level 106 Carbon Dioxide Level 26 Anion Gap 18 H Blood Urea Nitrogen 10 Creatinine 0.70 Glucose Level 104 Calcium Level 8.7 Total Bilirubin 3.2 H Direct Bilirubin 2.30 #H Indirect Bilirubin 0.9 Aspartate Amino Transf (AST/SGOT) 241 H Alanine Aminotransferase (ALT/SGPT) 333 H Alkaline Phosphatase 207 H Total Protein 7.2 Albumin 4.1 Globulin 3.10 Albumin/Globulin Ratio 1.32 Medications Medications Current Medications Sodium Chloride (NS) 1,000 ml @ 80 mls/hr [id number] IV Last administered on 01/04 05:42; Admin Dose 80 MLS/HR; Start 01/03/17 at 02:52 Ondansetron HCl (Zofran Inj) 4 mg Q6H PRN IV NAUSEA AND/OR VOMITING; Start at 03:00 Acetaminophen (Tylenol Tab) 650 mg Q6H PRN PO PAIN LEVEL 1-3 OR FEVER; Start 01/03/17 at 03:00 Hydromorphone HCl (Dilaudid) 0.5 mg Q4H PRN IV SEVERE PAIN LEVEL 7-10; Start 01/03/17 at 03:00 Pantoprazole 40 mg 40 mg DAILY@06 IV Last administered on 01/04/17 05:42; Admin Dose 40 MG; Start 01/03/17 at 06:00 Piperacillin Sod/ Tazobactam Sod (Zosyn 3.375gm/ 100 ml (Pmx)) 100 ml @ 200 mls /hr Q6 IVPB Last administered on 01/04/17t 12:27; Admin Dose 200 MLS/HR; Start 01/03/17 at 03:30 ALFREDA ZAYAS Jan 04, 2017 14:00
[2017-01-04 14:51] VITALS: BP 121/62; RESP 18
[2017-01-04] MEDS: FAMOTIDINE 20 MG INJ IV SCH (20:45)
[2017-01-04 20:51] VITALS: BP 129/68; RESP 18
[2017-01-05 02:49] VITALS: BP 152/70; RESP 16
[2017-01-05 03:45] VITALS: PULSE 61
[2017-01-05] MEDS: PIPER-TAZO 3.375 GM IV (PMX) 100 ML IVPB SCH ×3 (05:10→17:07)
[2017-01-05 07:59] VITALS: BP 115/64; RESP 18
[2017-01-05] MEDS: FAMOTIDINE 20 MG INJ IV SCH ×2 (08:26→20:27)
[2017-01-05] MEDS: SOD CHLORIDE 0.9% 1,000 ML IV SCH (08:30)
--- NOTE | 2017-01-05 10:00 | PN ---
Date/Time of Note Date/Time of Note DATE: 01/05/17 TIME: 09:55 Assessment/Plan VTE Prophylaxis VTE Prophylaxis Intervention: ambulation, SCD's Lines/Catheters [facility] Peripheral IV Urinary Cath still in place: No Assessment/Plan Chief Complaint/Hosp Course Assessment: Right upper quadrant pain/improving R/o Symptomatic cholelithiasis vs choledocholithiasis. Leukocytosis/improved Transaminitis/continue to improve Plan: Plan is for laparoscopic cholecystectomy tomorrow Transaminitis continue to improve- bili now WNL Patient seen in collaboration with Subjective: Course reviewed with nursing staff Patient interviewed and examined All labs, imaging and other results reviewed The patient doing very well, currently denies nausea/vomiting, states abd pain is much better 2/10 plan for surgery tomorrow. PHYSICAL EXAMINATION: GENERAL: Well developed, well nourished, alert & oriented x 3, in no acute distress SKIN: No lesions, no stigmata chronic liver disease, no evidence of bleeding diathesis LYMPHATIC: No palpable lymphadenopathy. HEAD: Normocephalic, atraumatic, no tenderness. EYES: Pupils equal reactive to light and accommodation, full extraocular movements, sclera clear, non-icteric, no discharge. EARS/NOSE AND THROAT: Ears normal, nose normal, oropharynx normal, oral membranes well hydrated without lesions. NECK: Supple, no masses, thyroid normal, JVP within normal limits, carotids normal without bruits. CHEST: Inspection within normal limits. CARDIOVASCULAR: Heart: Regular rate and rhythm, no murmurs, gallops or rubs. Peripheral pulses present within normal limits, no cyanosis, clubbing or edemas. No pulsatile abdominal mass RESPIRATORY: Lungs clear to auscultation and percussion, no wheezing, no rubs GASTROINTESTINAL AND LIVER: Abdomen: Soft, tenderness, non-distended, no hernias , no masses, no organomegaly, no ascites, no guarding, no rebound tenderness, normoactive bowel sounds. Rectal: Deferred. [no perianal disease, no masses, stool normal, occult blood negative.] GENITOURINARY: Female genitalia within normal limits. EXTREMITIES: No cyanosis, clubbing or edema. Problems: Exam/Review of Systems Vital Signs Vitals Vital Signs Date Time Temp Pulse Resp B/P Pulse Ox O2 Delivery O2 Flow Rate FiO2 01/05/17 07:59 97.9 60 18 115/64 96 01/03/17 02:27 Room Air Intake and Output 01/04/17 01/04/17 01/05/17 15:00 23:00 07:00 Intake Total 100 ml 1100 ml 1050 ml Balance 100 ml 1100 ml 1050 ml Results Result Diagram: 01/05/17 0438 01/05/17 0438 Results 24 hrs Laboratory Tests Test 01/05/17 04:38 White Blood Count 6.1 Red Blood Count 3.87 L Hemoglobin 11.7 L Hematocrit 35.5 L Mean Corpuscular Volume 91.7 Mean Corpuscular Hemoglobin 30.2 Mean Corpuscular Hemoglobin Concent 33.0 Red Cell Distribution Width 12.9 Platelet Count 282 Mean Platelet Volume 10.3 Neutrophils % 53.2 Lymphocytes % 28.4 Monocytes % 8.4 Eosinophils % 8.7 H Basophils % 1.0 Nucleated Red Blood Cells % 0.0 Neutrophils # 3.2 Lymphocytes # 1.7 Monocytes # 0.5 Eosinophils # 0.5 Basophils # 0.1 Nucleated Red Blood Cells # 0.0 Sodium Level 144 Potassium Level 3.5 Chloride Level 109 Carbon Dioxide Level 27 Anion Gap 12 Blood Urea Nitrogen 8 Creatinine 0.70 Glucose Level 97 Calcium Level 8.9 Total Bilirubin 1.2 # Direct Bilirubin 0.50 #H Indirect Bilirubin 0.7 Aspartate Amino Transf (AST/SGOT) 132 H Alanine Aminotransferase (ALT/SGPT) 255 H Alkaline Phosphatase 186 H Total Protein 6.9 Albumin 3.4 Globulin 3.50 H Albumin/Globulin Ratio 0.97 Medications Medications Current Medications Sodium Chloride (NS) 1,000 ml @ 80 mls/hr [id number] IV Last administered on 01/05t 08:30; Admin Dose 80 MLS/HR; Start 01/03/17 at 02:52 Ondansetron HCl (Zofran Inj) 4 mg Q6H PRN IV NAUSEA AND/OR VOMITING; Start at 03:00 Acetaminophen (Tylenol Tab) 650 mg Q6H PRN PO PAIN LEVEL 1-3 OR FEVER; Start 01/03/17 at 03:00 Hydromorphone HCl 0.5 mg 0.5 mg Q4H PRN IV SEVERE PAIN LEVEL 7-10; Start 01/03 at 03:00 Piperacillin Sod/ Tazobactam Sod (Zosyn 3.375gm/ 100 ml (Pmx)) 100 ml @ 200 mls /hr Q6 IVPB Last administered on 01/05/17 05:10; Admin Dose 200 MLS/HR; Start 01/03/17 at 03:30 Famotidine (Pepcid Iv) 20 mg Q12 IV Last administered on 01/05/17 08:26; Admin Dose 20 MG; Start 01/04/17 at 21:00 ALFREDA ZAYAS Jan 05, 2017 10:00
--- NOTE | 2017-01-05 10:39 | PN ---
Date/Time of Note Date/Time of Note DATE: 01/05/17 TIME: 10:19 Assessment/Plan Lines/Catheters IV Catheter Type (from [facility]): Peripheral IV Landon in Place (from [facility]): No Assessment/Plan Chief Complaint/Hosp Course 1. Symptomatic cholelithiasis possible cholecystitis: r/b/a of lap ashley discussed w patient and ; patient decided to proceed w surgery- scheduled tomorrow -lap ashley -ivf -abx -pain management 2. Transaminitis with elevated bili: no choledocholithiasis per MRI: improving -as above -further workup for liver disease per gi 3. Hepatomegaly with fatty liver -medical management -eventual weight loss; diet modification 4. Leukocytosis: likely 2/2 #1 normalized -as above 5. Obesity: bmi 31 -diet and exercise optimization -encourage weight loss 6. Abdominal pain: 2/2 #1: improved -as above 7. Hypernatremia: improved -sodium optimization; judicious fluids Thank you. Patient seen and examined in collaboration with Dr. Nahun Sorto. Problems: Subjective 24 Hr Interval Summary Feels well. Pending surgery tomorrow. No c/o abdominal pain/discomfort. No fevers, chills, sob, congested cough, cp, palpitations, leija, dizziness, n/v/d/ dysuria. Exam/Review of Systems Vital Signs Vitals Vital Signs Date Time Temp Pulse Resp B/P Pulse Ox O2 Delivery O2 Flow Rate FiO2 01/05/17 07:59 97.9 60 18 115/64 96 01/03/17 02:27 Room Air Intake and Output 01/04/17 01/04/17 01/05/17 15:00 23:00 07:00 Intake Total 100 ml 1100 ml 1050 ml Balance 100 ml 1100 ml 1050 ml Exam Free Text/Dictation Constitutional: alert, oriented Psych: nl mood/affect Head: atraumatic, normocephalic Eyes: nl lids, nl sclera ENMT: mucosa pink and moist, nl nasal mucosa & septum; eyes slightly icteric Neck: non-tender, supple Respiratory: clear to auscultation, normal air movement Cardiovascular: nl pulses, regular rate and rhythm Gastrointestinal: non-tender, soft, negative long's on palpation No tender Genitourinary - Female: nl adnexae, nl external genitalia Musculoskeletal: nl extremities to inspection, nl gait and stance Extremities: normal pulses Neurological: nl mental status, nl speech, nl strength Skin: nl turgor, rash or lesions Lymph: nl lymph nodes Results Result Diagram: 01/05/17 0438 01/05/17 0438 KATERIN CHERY NP Jan 05, 2017 10:29
--- NOTE | 2017-01-05 10:55 | PN ---
Date/Time of Note Date/Time of Note DATE: 01/05/17 TIME: 10:52 Assessment/Plan VTE Prophylaxis VTE Prophylaxis Intervention: ambulation Lines/Catheters [facility] Per[facility] IV Urinary Cath still in place: No Assessment/Plan Chief Complaint/Hosp Course 1. Symptomatic cholelithiasis possible acute calculus cholecystitis -Patient is scheduled for laparoscopic versus open cholecystectomy tomorrow by surgery colleagues. -Postoperative diet, antibiotic, anticoagulation per surgery. Continue pain control. 2. Transaminase elevation with hyperbilirubinemia, likely secondary to #1. MRCP did not reveal any choledocholithiasis. Hyperbilirubinemia resolved. LFTs remained stable at baseline. Hep panel negative. -Follow-up with intraoperative liver biopsy if any. 3.Leukocytosis, likely secondary to #1. Resolved. -Treatment per #1. 4. Hepatomegaly with fatty liver -Lifestyle modification advised. 5. Obesity -Weight reduction advised. Preoperative risk stratification: Given patient's medical condition, patient is at a low to intermediate risk for any untoward medical events for surgery. However, benefit likely outweigh risks and recommended to have surgical intervention. Patient is seen in collaboration with Dr. Corley. Problems: Subjective 24 Hr Interval Summary Free Text/Dictation Patient doing well. She does not have any pain at this time. Ambulating in room. Exam/Review of Systems Vital Signs Vitals Vital Signs Date Time Temp Pulse Resp B/P Pulse Ox O2 Delivery O2 Flow Rate FiO2 01/05/17 07:59 97.9 60 18 115/64 96 01/03/17 02:27 Room Air Intake and Output 01/04/17 01/04/17 01/05/17 15:00 23:00 07:00 Intake Total 100 ml 1100 ml 1050 ml Balance 100 ml 1100 ml 1050 ml Exam General: Well developed,adequately built obese female, not in any acute distress . HEENT: Normocephalic, Atraumatic, No laceration or hematoma; Eyes: PEERL, Conjunctiva clear,Mildly icteric sclera. Neck: Supple without any lymphadenopathy, nontender, no JVD, no carotid bruits, trachea midline, no thyromegaly Cardiac: S1, S2 auscultated, regular rhythm and rate, no mumurs or gallop Pulmonary: Normal respiratory effort. Chest clear to auscultation bilaterally, no adventitious breath sounds GI: With right upper quadrant tenderness-very minimal. Otherwise, abdomen normal to inspection. Soft,non- distended, no masses, no rebound tenderness or guarding. Bowel sounds active on all four quadrants Genitourinary: Deferred Extremities: No cyanosis, clubbing, or edema. Pulses [2+] bilaterally. Full ROM on all four extremities. No focal weakness appreciated. Neurologic: Alert to person, place, time, and situation. Affect appropriate, intact sensation. Skin: Clean,dry, and intact. No ecchymosis, no rashes, or lesions Results Result Diagram: 01/05/1743701/05/17437 Results 24 hrs Laboratory Tests Test 01/05/17 04:38 White Blood Count 6.1 Red Blood Count 3.87 L Hemoglobin 11.7 L Hematocrit 35.5 L Mean Corpuscular Volume 91.7 Mean Corpuscular Hemoglobin 30.2 Mean Corpuscular Hemoglobin Concent 33.0 Red Cell Distribution Width 12.9 Platelet Count 282 Mean Platelet Volume 10.3 Neutrophils % 53.2 Lymphocytes % 28.4 Monocytes % 8.4 Eosinophils % 8.7 H Basophils % 1.0 Nucleated Red Blood Cells % 0.0 Neutrophils # 3.2 Lymphocytes # 1.7 Monocytes # 0.5 Eosinophils # 0.5 Basophils # 0.1 Nucleated Red Blood Cells # 0.0 Sodium Level 144 Potassium Level 3.5 Chloride Level 109 Carbon Dioxide Level 27 Anion Gap 12 Blood Urea Nitrogen 8 Creatinine 0.70 Glucose Level 97 Calcium Level 8.9 Total Bilirubin 1.2 # Direct Bilirubin 0.50 #H Indirect Bilirubin 0.7 Aspartate Amino Transf (AST/SGOT) 132 H Alanine Aminotransferase (ALT/SGPT) 255 H Alkaline Phosphatase 186 H Total Protein 6.9 Albumin 3.4 Globulin 3.50 H Albumin/Globulin Ratio 0.97 Medications Medications Current Medications Sodium Chloride (NS) 1,000 ml @ 80 mls/hr [id number] IV Last administered on 01/05t 08:30; Admin Dose 80 MLS/HR; Start 01/03/17 at 02:52 Ondansetron HCl (Zofran Inj) 4 mg Q6H PRN IV NAUSEA AND/OR VOMITING; Start at 03:00 Acetaminophen (Tylenol Tab) 650 mg Q6H PRN PO PAIN LEVEL 1-3 OR FEVER; Start 01/03/17 at 03:00 Hydromorphone HCl 0.5 mg 0.5 mg Q4H PRN IV SEVERE PAIN LEVEL 7-10; Start 01/03 at 03:00 Piperacillin Sod/ Tazobactam Sod (Zosyn 3.375gm/ 100 ml (Pmx)) 100 ml @ 200 mls /hr Q6 IVPB Last administered on 01/05/17 05:10; Admin Dose 200 MLS/HR; Start 01/03/17 at 03:30 Famotidine (Pepcid Iv) 20 mg Q12 IV Last administered on 01/05/17 08:26; Admin Dose 20 MG; Start 01/04/17 at 21:00 IVELISSE LOMELI NP Jan 05, 2017 10:54
--- NOTE | 2017-01-05 12:18 | RADRPT ---
PROCEDURE: XR Chest. CLINICAL INDICATION: Preoperative TECHNIQUE: Single frontal view of the chest was obtained COMPARISON: None FINDINGS: No pleural effusion or pneumothorax. No consolidation. Top normal cardiac silhouette. Calcified aortic arch suggestive of chronic systemic hypertension. No acute osseous abnormality. IMPRESSION: No acute cardiopulmonary disease. Mild cardiomegaly. RPTAT: EE Sarina Olvera Physician Date Time Electronically viewed and signed by Sarina Olvera Physician on 01/05/2017 12:17 /
[2017-01-05 14:00] VITALS: BP 134/74; RESP 20
[2017-01-05 20:30] VITALS: BP 137/75; RESP 19
[2017-01-06] VITALS (9 sets, daily range): BP systolic 125–166; BP diastolic 62–84; PULSE 62–66; RESP 14–19
[2017-01-06] MEDS: SOD CHLORIDE 0.9% 1,000 ML IV SCH ×2 (00:04→17:44)
[2017-01-06] MEDS: PIPER-TAZO 3.375 GM IV (PMX) 100 ML IVPB SCH ×4 (00:04→17:43)
[2017-01-06] MEDS: FAMOTIDINE 20 MG INJ IV SCH ×2 (09:08→20:14)
--- NOTE | 2017-01-06 10:15 | PN ---
Date/Time of Note Date/Time of Note DATE: 01/06/17 TIME: 10:14 Assessment/Plan VTE Prophylaxis VTE Prophylaxis Intervention: ambulation Lines/Catheters IV Catheter Type (from [facility]): Peripheral IV Urinary Cath still in place: No Assessment/Plan Chief Complaint/Hosp Course 1. Symptomatic cholelithiasis possible acute calculus cholecystitis -Patient is scheduled for laparoscopic versus open cholecystectomy today by Dr. Sorto. -Postoperative diet, antibiotic, anticoagulation per surgery. Continue pain control. 2. Transaminase elevation with hyperbilirubinemia, likely secondary to #1. MRCP did not reveal any choledocholithiasis. Hyperbilirubinemia resolved. LFTs remained stable at baseline. Hep panel negative. -Follow-up with intraoperative liver biopsy if any. 3.Leukocytosis, likely secondary to #1. Resolved. -Treatment per #1. 4. Hepatomegaly with fatty liver -Lifestyle modification advised. 5. Obesity -Weight reduction advised. Preoperative risk stratification: Given patient's medical condition, patient is at a low to intermediate risk for any untoward medical events for surgery. However, benefit likely outweigh risks and recommended to have surgical intervention. Plan: Follow-up with surgery colleagues for postoperative recommendations. Patient is seen in collaboration with Dr. Corley. Problems: Subjective 24 Hr Interval Summary Free Text/Dictation No acute distress. Patient is cholecystectomy today. Exam/Review of Systems Vital Signs Vitals Vital Signs Date Time Temp Pulse Resp B/P Pulse Ox O2 Delivery O2 Flow Rate FiO2 01/06/17 07:20 98.3 58 16 140/64 96 01/03/17 02:27 Room Air Intake and Output 01/05/17 01/05/17 01/06/17 15:00 23:00 07:00 Intake Total 100 ml 2810 ml 1200 ml Balance 100 ml 2810 ml 1200 ml Exam General: Well developed,adequately built obese female, not in any acute distress . HEENT: Normocephalic, Atraumatic, No laceration or hematoma; Eyes: PEERL, Conjunctiva clear,Mildly icteric sclera. Neck: Supple without any lymphadenopathy, nontender, no JVD, no carotid bruits, trachea midline, no thyromegaly Cardiac: S1, S2 auscultated, regular rhythm and rate, no mumurs or gallop Pulmonary: Normal respiratory effort. Chest clear to auscultation bilaterally, no adventitious breath sounds GI: With right upper quadrant tenderness-very minimal. Otherwise, abdomen normal to inspection. Soft,non- distended, no masses, no rebound tenderness or guarding. Bowel sounds active on all four quadrants Genitourinary: Deferred Extremities: No cyanosis, clubbing, or edema. Pulses [2+] bilaterally. Full ROM on all four extremities. No focal weakness appreciated. Neurologic: Alert to person, place, time, and situation. Affect appropriate, intact sensation. Skin: Clean,dry, and intact. No ecchymosis, no rashes, or lesions Results Result Diagram: 01/06/17 0434 01/06/17 0433 Results 24 hrs Laboratory Tests Test 01/05/17 11:50 01/06/17 04:33 01/06/17 04:34 Urine Test NEGATIVE Sodium Level 146 H Potassium Level 3.5 Chloride Level 110 Carbon Dioxide Level 27 Anion Gap 13 Blood Urea Nitrogen 6 L Creatinine 0.68 Glucose Level 105 Calcium Level 9.1 Total Bilirubin 0.9 Direct Bilirubin 0.10 # Indirect Bilirubin 0.8 Aspartate Amino Transf (AST/SGOT) 100 H Alanine Aminotransferase (ALT/SGPT) 205 H Alkaline Phosphatase 180 H Total Protein 6.9 Albumin 3.5 Globulin 3.40 H Albumin/Globulin Ratio 1.02 White Blood Count 6.2 Red Blood Count 3.81 L Hemoglobin 11.2 L Hematocrit 34.7 L Mean Corpuscular Volume 91.1 Mean Corpuscular Hemoglobin 29.4 Mean Corpuscular Hemoglobin Concent 32.3 Red Cell Distribution Width 13.0 Platelet Count 305 Mean Platelet Volume 10.5 H Neutrophils % 49.3 Lymphocytes % 32.5 Monocytes % 8.4 Eosinophils % 8.5 H Basophils % 1.0 Nucleated Red Blood Cells % 0.0 Neutrophils # 3.1 Lymphocytes # 2.0 Monocytes # 0.5 Eosinophils # 0.5 Basophils # 0.1 Nucleated Red Blood Cells # 0.0 Medications Medications Current Medications Sodium Chloride (NS) 1,000 ml @ 80 mls/hr [id number] IV Last administered on 01/06 00:04; Admin Dose 80 MLS/HR; Start 01/03/17 at 02:52 Ondansetron HCl (Zofran Inj) 4 mg Q6H PRN IV NAUSEA AND/OR VOMITING; Start at 03:00 Acetaminophen (Tylenol Tab) 650 mg Q6H PRN PO PAIN LEVEL 1-3 OR FEVER; Start 01/03/17 at 03:00 Hydromorphone HCl 0.5 mg 0.5 mg Q4H PRN IV SEVERE PAIN LEVEL 7-10; Start 01/03 at 03:00 Piperacillin Sod/ Tazobactam Sod (Zosyn 3.375gm/ 100 ml (Pmx)) 100 ml @ 200 mls /hr Q6 IVPB Last administered on 01/06/17 05:42; Admin Dose 200 MLS/HR; Start 01/03/17 at 03:30 Famotidine (Pepcid Iv) 20 mg Q12 IV Last administered on 01/06/17 09:08; Admin Dose 20 MG; Start 01/04/17 at 21:00 IVELISSE LOMELI NP Jan 06, 2017 10:15
--- NOTE | 2017-01-06 11:12 | PN ---
Date/Time of Note Date/Time of Note DATE: 01/06/17 TIME: 11:10 Assessment/Plan Lines/Catheters IV Catheter Type (from [facility]): Peripheral IV Landon in Place (from [facility]): No Assessment/Plan Chief Complaint/Hosp Course 1. Symptomatic cholelithiasis possible cholecystitis: r/b/a of lap ashley discussed w patient and ; patient decided to proceed w surgery -lap ashley -ivf -abx -pain management 2. Transaminitis with elevated bili: no choledocholithiasis per MRI: improving -as above -liver bx, ? ioc -further workup for liver disease per gi 3. Hepatomegaly with fatty liver -medical management -liver bx -eventual weight loss; diet modification 4. Leukocytosis: likely 2/2 #1 normalized -as above 5. Obesity: bmi 31 -diet and exercise optimization -encourage weight loss 6. Abdominal pain: 2/2 #1: improved -as above Thank you, Problems: Subjective 24 Hr Interval Summary Feels well. Pending surgery tomorrow. No c/o abdominal pain/discomfort. No fevers, chills, sob, congested cough, cp, palpitations, leija, dizziness, n/v/d/ dysuria. Exam/Review of Systems Vital Signs Vitals Vital Signs Date Time Temp Pulse Resp B/P Pulse Ox O2 Delivery O2 Flow Rate FiO2 01/06/17 07:20 98.3 58 16 140/64 96 01/03/17 02:27 Room Air Intake and Output 01/05/17 01/05/17 01/06/17 15:00 23:00 07:00 Intake Total 100 ml 2810 ml 1200 ml Balance 100 ml 2810 ml 1200 ml Exam Free Text/Dictation Constitutional: alert, oriented Psych: nl mood/affect Head: atraumatic, normocephalic Eyes: nl lids, nl sclera ENMT: mucosa pink and moist, nl nasal mucosa & septum; eyes slightly icteric Neck: non-tender, supple Respiratory: clear to auscultation, normal air movement Cardiovascular: nl pulses, regular rate and rhythm Gastrointestinal: non-tender, soft, negative long's on palpation. Non tender Musculoskeletal: nl extremities to inspection, nl gait and stance Extremities: normal pulses Neurological: nl mental status, nl speech, nl strength Skin: nl turgor, rash or lesions Lymph: nl lymph nodes Results Result Diagram: 01/06/17 0434 01/06/17 0433 ROSETTA JAEGER MD Jan 06, 2017 11:12
[2017-01-06] MEDS ORDERED: METOCLOPRAMIDE 10 MG INJ IV PRN ×2 (14:00→15:30)
[2017-01-06] MEDS ORDERED: FENTAnyl 50 MCG/ML VIAL IV PRN ×4 (14:00→15:30)
[2017-01-06] MEDS ORDERED: ONDANSETRON 4 MG INJ IV PRN ×2 (14:00→15:30)
[2017-01-06] MEDS ORDERED: MEPERIDINE 25 MG INJ IV PRN ×2 (14:00→15:30)
[2017-01-06] MEDS ORDERED: HYDROmorphONE (0.2 MG/ML) 10ML SYG IV PRN ×5 (14:00→15:30)
[2017-01-06] MEDS ORDERED: DIPHENHYDRAMINE 50 MG INJ IV PRN ×2 (14:00→15:30)
[2017-01-06] MEDS ORDERED: LIDOCAINE 1% (MPF) 30 ML INJ ONE (14:02)
[2017-01-06] MEDS ORDERED: BUPIVACAINE 0.5%/EPI (SDV) 30 ML INJ ONE (14:30)
[2017-01-06] MEDS ORDERED: FENTAnyl 50 MCG/ML VIAL ONE (14:53)
[2017-01-06] MEDS ORDERED: SUCCINYLCHOLINE CHLORIDE 100 MG/5 ML SYG IV ONE (15:27)
[2017-01-06] MEDS ORDERED: SUGAMMADEX SODIUM 200 MG/2 ML VIAL IV ONE (15:27)
[2017-01-06] MEDS ORDERED: ROCURONIUM 50 MG INJ ONE (15:27)
[2017-01-06] MEDS ORDERED: PROPOFOL 20 ML ONE (15:27)
[2017-01-06] MEDS ORDERED: LIDOCAINE 2% (SDV) 5 ML INJ ONE (15:27)
[2017-01-06] MEDS ORDERED: ROPIVACAINE 0.2% 20 ML VIAL ONE (16:05)
--- NOTE | 2017-01-06 16:21 | OPR ---
Date/Time of Note Date/Time of Note DATE: 01/06/17 TIME: 16:17 Operative Report Free Text/Dictation Preoperative Diagnosis: Symptomatic cholelithiasis Acute cholecystitis Transaminitis Hyperbilirubinemia Negative MRCP for choledocholithiasis BMI 31 Postoperative Diagnosis: Symptomatic cholelithiasis Acute cholecystitis Transaminitis Hyperbilirubinemia Abnormal liver color Negative MRCP for choledocholithiasis BMI 31 Operation(s) Performed: 1. 3 port laparoscopic cholecystectomy 2. Laparoscopic liver wedge resection biopsy 3. Local anesthetic injection, [id number] Surgeon: ROSETTA JAEGER MD Demolition Specialist: Erma Wellington NP Anesthesia: general, local, & regional Anesthesiologist: JASON BERNARD MD Estimated Blood Loss: 0 - 10 ml's Specimens: Liver Gallbladder Tubes/Drains: None Grafts: None Complications: None Pt Condition Post Procedure: stable Disposition: PACU Indications: 56-year-old female with gallstones, abnormal labs, and abdominal pain here for cholecystectomy. Risks include but are not limited to bleeding, infection, abscess, seroma, damage to intestines, damage to the liver, damage to biliary tree, hernia formation, chronic pain, biloma, need for reoperations or further surgeries, [place] , stroke, PE, DVT, pneumonia, organ failures, or even . Procedure Description: Patient was brought and placed supine on the operating table SCDs were placed, preoperative antibiotics were administered, all pressure points were well-padded , and after induction of anesthesia patient was prepped and draped in usual sterile fashion and timeout was performed. Incision was made in the supraumbilical region, Veress was safely inserted, and after a negative SIP test , abdomen was insufflated to 15mmHg. Veress was removed and 5mm port was safely inserted. Laparoscopy was performed with a 5 mm 30 scope. No injuries were identified. The liver looks somewhat abnormal color. Gallbladder is without evidence of section. 12 mm port is placed in subxiphoid under direct visualization followed by another 5 mm port in the right upper quadrant. All port sites were injected with quarter percent Marcaine with epi and 1% lidocaine prior to any incisions. Patient was placed in reverse Trendelenburg and right side up on gallbladder was retracted superolaterally. The gallbladder was large and distended. Using electrocautery and blunt dissection I was able to identify the cystic artery and cystic duct. The duct was dilated but tapered into the gallbladder. Full critical angle view was identified. Artery was clipped twice proximally and once distally and transected. Since the duct was dilated, it was transected with Endo MARE white load 35 mm stapler. The gallbladder was taken off the liver with electrocautery. Hemostasis was obtained. Gallbladder was placed in an Endo Catch bag and removed through the subxiphoid port site. There was complete hemostasis. Due to the abnormality of the liver decision was made to perform liver wedge resection which was done with electrocautery and scissor with complete hemostasis right after. The specimen was sent to pathology for further evaluation. 12 mm made port site fascia was closed with Endo Close of an 0 Vicryl in a [id number] manner. Ports and CO2 were removed under direct visualization. Next complete hemostasis. Wounds were thoroughly irrigated skin was closed with 4-0 Monocryl in subcuticular fashion. Dermabond was applied. Patient was extubated and transferred to recovery room in stable condition and all counts were correct and the end of the operation 2. Bilateral TAP procedure was performed by anesthesiologist prior to waking of the patient. ROSETTA JAEGER MD Jan 06, 2017 16:21
--- NOTE | 2017-01-06 16:21 | OPR ---
Date/Time of Note Date/Time of Note DATE: 01/06/17 TIME: 16:17 Operative Report Free Text/Dictation Preoperative Diagnosis: Symptomatic cholelithiasis Acute cholecystitis Transaminitis Hyperbilirubinemia Negative MRCP for choledocholithiasis BMI 31 Postoperative Diagnosis: Symptomatic cholelithiasis Acute cholecystitis Transaminitis Hyperbilirubinemia Abnormal liver color Negative MRCP for choledocholithiasis BMI 31 Operation(s) Performed: 1. 3 port laparoscopic cholecystectomy 2. Laparoscopic liver wedge resection biopsy 3. Local anesthetic injection, [id number] Surgeon: ROSETTA JAEGER MD Vocational Rehabilitation Administrator: Erma Wellington NP Anesthesia: general, local, & regional Anesthesiologist: JASON BERNARD MD Estimated Blood Loss: 0 - 10 ml's Specimens: Liver Gallbladder Tubes/Drains: None Grafts: None Complications: None Pt Condition Post Procedure: stable Disposition: PACU Indications: 56-year-old female with gallstones, abnormal labs, and abdominal pain here for cholecystectomy. Risks include but are not limited to bleeding, infection, abscess, seroma, damage to intestines, damage to the liver, damage to biliary tree, hernia formation, chronic pain, biloma, need for reoperations or further surgeries, [place] , stroke, PE, DVT, pneumonia, organ failures, or even . Procedure Description: Patient was brought and placed supine on the operating table SCDs were placed, preoperative antibiotics were administered, all pressure points were well-padded , and after induction of anesthesia patient was prepped and draped in usual sterile fashion and timeout was performed. Incision was made in the supraumbilical region, Veress was safely inserted, and after a negative SIP test , abdomen was insufflated to 15mmHg. Veress was removed and 5mm port was safely inserted. Laparoscopy was performed with a 5 mm 30 scope. No injuries were identified. The liver looks somewhat abnormal color. Gallbladder is without evidence of section. 12 mm port is placed in subxiphoid under direct visualization followed by another 5 mm port in the right upper quadrant. All port sites were injected with quarter percent Marcaine with epi and 1% lidocaine prior to any incisions. Patient was placed in reverse Trendelenburg and right side up on gallbladder was retracted superolaterally. The gallbladder was large and distended. Using electrocautery and blunt dissection I was able to identify the cystic artery and cystic duct. The duct was dilated but tapered into the gallbladder. Full critical angle view was identified. Artery was clipped twice proximally and once distally and transected. Since the duct was dilated, it was transected with Endo MARE white load 35 mm stapler. The gallbladder was taken off the liver with electrocautery. Hemostasis was obtained. Gallbladder was placed in an Endo Catch bag and removed through the subxiphoid port site. There was complete hemostasis. Due to the abnormality of the liver decision was made to perform liver wedge resection which was done with electrocautery and scissor with complete hemostasis right after. The specimen was sent to pathology for further evaluation. 12 mm made port site fascia was closed with Endo Close of an 0 Vicryl in a [id number] manner. Ports and CO2 were removed under direct visualization. Next complete hemostasis. Wounds were thoroughly irrigated skin was closed with 4-0 Monocryl in subcuticular fashion. Dermabond was applied. Patient was extubated and transferred to recovery room in stable condition and all counts were correct and the end of the operation 2. Bilateral TAP procedure was performed by anesthesiologist prior to waking of the patient. ROSETTA JAEGER MD Jan 06, 2017 16:21
[2017-01-06] MEDS ORDERED: HYDROCODONE/APAP (5/325) TAB PO PRN (16:30)
--- NOTE | 2017-01-06 17:42 | PN ---
Date/Time of Note Date/Time of Note DATE: 01/06/17 TIME: 17:37 Assessment/Plan VTE Prophylaxis VTE Prophylaxis Intervention: SCD's Lines/Catheters IV [facility] (from [facility]): Peripheral IV Urinary Cath still in place: No Assessment/Plan Chief Complaint/Hosp Course Assessment: Right upper quadrant pain/improving R/o Symptomatic cholelithiasis vs choledocholithiasis. Leukocytosis/improved Transaminitis/continue to improve Plan: S/p laparoscopic cholecystectomy, with laparoscopic liver wedge resection biopsy - due to abnormality of the liver Review biopsy when available Diet per surgery Transaminitis continue to improve- bili now WNL Patient seen in collaboration with Subjective: Course reviewed with nursing staff Patient interviewed and examined All labs, imaging and other results reviewed Patient is resting in bed comfortably, family at bedside. Status post laparoscopic cholecystectomy, liver appeared abnormal wedge resection biopsy was completed during surgery Biopsy results pending, workup based on results PHYSICAL EXAMINATION: GENERAL: Well developed, well nourished, alert & oriented x 3, in no acute distress SKIN: No lesions, no stigmata chronic liver disease, no evidence of bleeding diathesis, surgical site incisions intact LYMPHATIC: No palpable lymphadenopathy. HEAD: Normocephalic, atraumatic, no tenderness. EYES: Pupils equal reactive to light and accommodation, full extraocular movements, sclera clear, non-icteric, no discharge. EARS/NOSE AND THROAT: Ears normal, nose normal, oropharynx normal, oral membranes well hydrated without lesions. NECK: Supple, no masses, thyroid normal, JVP within normal limits, carotids normal without bruits. CHEST: Inspection within normal limits. CARDIOVASCULAR: Heart: Regular rate and rhythm, no murmurs, gallops or rubs. Peripheral pulses present within normal limits, no cyanosis, clubbing or edemas. No pulsatile abdominal mass RESPIRATORY: Lungs clear to auscultation and percussion, no wheezing, no rubs GASTROINTESTINAL AND LIVER: Abdomen: Soft, tenderness, non-distended, no hernias , no masses, no organomegaly, no ascites, no guarding, no rebound tenderness, normoactive bowel sounds. Rectal: Deferred. [no perianal disease, no masses, stool normal, occult blood negative.] GENITOURINARY: Female genitalia within normal limits. EXTREMITIES: No cyanosis, clubbing or edema. Problems: Exam/Review of Systems Vital Signs Vitals Vital Signs Date Time Temp Pulse Resp B/P Pulse Ox O2 Delivery O2 Flow Rate FiO2 01/06/17 16:48 66 14 163/76 95 Room Air 01/06/17 16:28 97.8 Intake and Output 01/05/17 01/05/17 01/06/17 15:00 23:00 07:00 Intake Total 100 ml 2810 ml 1200 ml Balance 100 ml 2810 ml 1200 ml Results Result Diagram: 01/06/17 0434 01/06/17 0433 Results 24 hrs Laboratory Tests Test 01/06/17 04:33 01/06/17 04:34 Sodium Level 146 H Potassium Level 3.5 Chloride Level 110 Carbon Dioxide Level 27 Anion Gap 13 Blood Urea Nitrogen 6 L Creatinine 0.68 Glucose Level 105 Calcium Level 9.1 Total Bilirubin 0.9 Direct Bilirubin 0.10 # Indirect Bilirubin 0.8 Aspartate Amino Transf (AST/SGOT) 100 H Alanine Aminotransferase (ALT/SGPT) 205 H Alkaline Phosphatase 180 H Total Protein 6.9 Albumin 3.5 Globulin 3.40 H Albumin/Globulin Ratio 1.02 White Blood Count 6.2 Red Blood Count 3.81 L Hemoglobin 11.2 L Hematocrit 34.7 L Mean Corpuscular Volume 91.1 Mean Corpuscular Hemoglobin 29.4 Mean Corpuscular Hemoglobin Concent 32.3 Red Cell Distribution Width 13.0 Platelet Count 305 Mean Platelet Volume 10.5 H Neutrophils % 49.3 Lymphocytes % 32.5 Monocytes % 8.4 Eosinophils % 8.5 H Basophils % 1.0 Nucleated Red Blood Cells % 0.0 Neutrophils # 3.1 Lymphocytes # 2.0 Monocytes # 0.5 Eosinophils # 0.5 Basophils # 0.1 Nucleated Red Blood Cells # 0.0 Medications Medications Current Medications Sodium Chloride (NS) 1,000 ml @ 80 mls/hr [id number] IV Last administered on 01/06t 00:04; Admin Dose 80 MLS/HR; Start 01/03/17 at 02:52 Ondansetron HCl (Zofran Inj) 4 mg Q6H PRN IV NAUSEA AND/OR VOMITING; Start at 03:00 Acetaminophen (Tylenol Tab) 650 mg Q6H PRN PO PAIN LEVEL 1-3 OR FEVER; Start 01/03/17 at 03:00 Hydromorphone HCl 0.5 mg 0.5 mg Q4H PRN IV SEVERE PAIN LEVEL 7-10; Start 01/03 at 03:00 Piperacillin Sod/ Tazobactam Sod (Zosyn 3.375gm/ 100 ml (Pmx)) 100 ml @ 200 mls /hr Q6 IVPB Last administered on 01/06/17 12:29; Admin Dose 200 MLS/HR; Start 01/03/17 at 03:30 Famotidine (Pepcid Iv) 20 mg Q12 IV Last administered on 01/06/17 09:08; Admin Dose 20 MG; Start 01/04/17 at 21:00 Morphine Sulfate (morphine) 2 mg Q2H PRN IV PAIN LEVEL 7-10; Start 01/06/17 at 16:30 Acetaminophen/ Hydrocodone Bitart ([place] (5/325)) 1 tab Q6H PRN PO PAIN LEVEL 4 -6; Start 01/06/17 at 16:30 ALFREDA ZAYAS Jan 06, 2017 17:41
[2017-01-06] MEDS: morphine 2 MG INJ IV PRN (20:14)
[2017-01-07] MEDS: morphine 2 MG INJ IV PRN (00:13)
[2017-01-07] MEDS: PIPER-TAZO 3.375 GM IV (PMX) 100 ML IVPB SCH ×3 (00:13→11:54)
[2017-01-07 00:14] VITALS: BP 153/75; PULSE 69
[2017-01-07 02:00] VITALS: BP 145/72; RESP 18
[2017-01-07 05:10] VITALS: BP 142/77; PULSE 66
[2017-01-07] MEDS: SOD CHLORIDE 0.9% 1,000 ML IV SCH ×2 (06:27→19:58)
[2017-01-07 07:53] VITALS: BP 111/62; RESP 16
--- NOTE | 2017-01-07 09:09 | PN ---
Date/Time of Note Date/Time of Note DATE: 01/07/17 TIME: 09:09 Assessment/Plan VTE Prophylaxis VTE Prophylaxis Intervention: ambulation Lines/Catheters IV Catheter Type (from Nrs): Peripheral IV Urinary Cath still in place: No Assessment/Plan Assessment/Plan 1. Symptomatic cholelithiasis s/p lab ashley - Surgery on board and consultation appreciated - Patient states vomiting after clear liquids yesterday but tolerated diet this am - Postoperative diet, antibiotic, anticoagulation per surgery. Continue pain control. 2. Transaminase elevation with hyperbilirubinemia, likely secondary to #1 - MRCP did not reveal any choledocholithiasis - Hyperbilirubinemia resolved. LFTs remained stable at baseline. Hep panel negative. - Follow-up with intraoperative liver biopsy if any. - GI on board and consultation appreciated 3. Leukocytosis, likely secondary to #1. Resolved. 4. Hepatomegaly with fatty liver -Lifestyle modification advised. 5. Obesity -Weight reduction advised. 6. Disposition - will touch base with surgery on d/c planning Subjective 24 Hr Interval Summary Free Text/Dictation Patient resting comfortably. States had episode of vomiting after eating clear liquids. pain controlled with medications. no acute overnight events. Exam/Review of Systems Vital Signs Vitals Vital Signs Date Time Temp Pulse Resp B/P Pulse Ox O2 Delivery O2 Flow Rate FiO2 01/07/17 07:53 98.1 68 16 111/62 95 01/06/17 16:48 Room Air Intake and Output 01/06/17 01/06/17 01/07/17 15:00 23:00 07:00 Intake Total 580 ml 1100 ml 1680 ml Output Total 10 ml Balance 580 ml 1090 ml 1680 ml Exam General: resting comfortably, no acute distress, ice packs on abdomen. Neck: supple, midline Cardiac: S1, S2 auscultated, regular rhythm and rate, no mumurs or gallop Pulmonary: Normal respiratory effort. Chest clear to auscultation bilaterally, no wheezing or crackles GI: RUQ tenderness, soft,non- distended, no masses, no rebound tenderness or guarding. Bowel sounds active on all four quadrants Extremities: No cyanosis, clubbing, or edema. Pulses [2+] bilaterally. Full ROM on all four extremities. No focal weakness appreciated. Skin: Clean,dry, and intact. No ecchymosis, no rashes, or lesions Results Result Diagram: 01/07/17 0417 01/07/17 0417 Results 24 hrs Laboratory Tests Test 01/07/17 04:17 White Blood Count 9.7 # Red Blood Count 4.08 L Hemoglobin 12.4 Hematocrit 37.1 Mean Corpuscular Volume 90.9 Mean Corpuscular Hemoglobin 30.4 Mean Corpuscular Hemoglobin Concent 33.4 Red Cell Distribution Width 12.5 Platelet Count 339 Mean Platelet Volume 10.0 Neutrophils % 85.4 H Lymphocytes % 9.0 L Monocytes % 4.5 Eosinophils % 0.1 Basophils % 0.4 Nucleated Red Blood Cells % 0.0 Neutrophils # 8.3 H Lymphocytes # 0.9 Monocytes # 0.4 Eosinophils # 0.0 Basophils # 0.0 Nucleated Red Blood Cells # 0.0 Sodium Level 140 Potassium Level 3.5 Chloride Level 103 Carbon Dioxide Level 26 Anion Gap 15 Blood Urea Nitrogen 8 Creatinine 0.60 Glucose Level 113 Calcium Level 9.2 Total Bilirubin 0.8 Direct Bilirubin 0.00 Indirect Bilirubin 0.8 Aspartate Amino Transf (AST/SGOT) 123 H Alanine Aminotransferase (ALT/SGPT) 223 H Alkaline Phosphatase 202 H Total Protein 7.7 Albumin 4.0 Globulin 3.70 H Albumin/Globulin Ratio 1.08 Medications Medications Current Medications Sodium Chloride (NS) 1,000 ml @ 80 mls/hr [id number] IV Last administered on 01/07 06:27; Admin Dose 80 MLS/HR; Start 01/03/17 at 02:52 Ondansetron HCl (Zofran Inj) 4 mg Q6H PRN IV NAUSEA AND/OR VOMITING; Start at 03:00 Acetaminophen (Tylenol Tab) 650 mg Q6H PRN PO PAIN LEVEL 1-3 OR FEVER; Start 01/03/17 at 03:00 Hydromorphone HCl 0.5 mg 0.5 mg Q4H PRN IV SEVERE PAIN LEVEL 7-10; Start 01/03 at 03:00 Piperacillin Sod/ Tazobactam Sod (Zosyn 3.375gm/ 100 ml (Pmx)) 100 ml @ 200 mls /hr Q6 IVPB Last administered on 01/07/17 05:56; Admin Dose 200 MLS/HR; Start 01/03/17 at 03:30 Famotidine (Pepcid Iv) 20 mg Q12 IV Last administered on 01/06/17 20:14; Admin Dose 20 MG; Start 01/04/17 at 21:00 Morphine Sulfate (morphine) 2 mg Q2H PRN IV PAIN LEVEL 7-10 Last administered on 01/07/17 00:13; Admin Dose 2 MG; Start 01/06/17 at 16:30 Acetaminophen/ Hydrocodone Bitart ([place] (5/325)) 1 tab Q6H PRN PO PAIN LEVEL 4 -6 Last administered on 01/07/17 05:14; Admin Dose 1 TAB; Start 01/06/17 at 16: 30 JAMEE SAVAGE MD Jan 07, 2017 09:09
[2017-01-07] MEDS: FAMOTIDINE 20 MG INJ IV SCH ×2 (09:13→20:00)
[2017-01-07 14:15] VITALS: BP 128/65; RESP 16
[2017-01-07] MEDS: PIPER-TAZO 3.375 GM IV (PMX) 50 ML IVPB SCH (17:34)
--- NOTE | 2017-01-07 17:56 | PN ---
Date/Time of Note Date/Time of Note DATE: 01/07/17 TIME: 17:51 Assessment/Plan Lines/Catheters IV Catheter Type (from [facility]): Peripheral IV [place] in Place (from [facility]): No Assessment/Plan Chief Complaint/Hosp Course 1. Symptomatic cholelithiasis possible cholecystitis: s/p lap ashley -ix -ambulation -pain management -may be discharged per medical team with follow up in office in 1-2 weeks 2. Transaminitis: liver biopsy done -as above -further workup for liver disease per gi; follow liver biopsy 3. Hepatomegaly with fatty liver -medical management -eventual weight loss; diet modification -as above 4. Leukocytosis: likely 2/2 #1 normalized -as above 5. Obesity: bmi 31 -diet and exercise optimization -encourage weight loss 6. Abdominal pain: 2/2 #1: improved -as above Thank you. Patient seen and examined in collaboration with Dr. Nahun Sorto. Problems: Subjective 24 Hr Interval Summary Feels well. Tolerating diet. +flatus. No c/o abdominal pain. no incisional drainage or discoloration. No fevers, chills, sob, congested cough, cp, palpitations, leija, dizziness, n/v/d/dysuria. Exam/Review of Systems Vital Signs Vitals Vital Signs Date Time Temp Pulse Resp B/P Pulse Ox O2 Delivery O2 Flow Rate FiO2 01/07/17 14:15 98.5 71 16 128/65 93 01/06/17 16:48 Room Air Intake and Output 01/06/17 01/06/17 01/07/17 15:00 23:00 07:00 Intake Total 580 ml 1100 ml 1680 ml Output Total 10 ml Balance 580 ml 1090 ml 1680 ml Exam Free Text/Dictation Constitutional: alert, oriented Psych: nl mood/affect Head: atraumatic, normocephalic Eyes: nl lids, nl sclera ENMT: mucosa pink and moist, nl nasal mucosa & septum; eyes slightly icteric Neck: non-tender, supple Respiratory: clear to auscultation, normal air movement Cardiovascular: nl pulses, regular rate and rhythm Gastrointestinal: non-tender, soft, Non tender, incision sites without drainage or discoloration. Musculoskeletal: nl extremities to inspection, nl gait and stance Extremities: normal pulses Neurological: nl mental status, nl speech, nl strength Skin: nl turgor, rash or lesions Lymph: nl lymph nodes Results Result Diagram: 01/07/17 0417 01/07/17 0417 KATERIN CHERY NP Jan 07, 2017 17:56
[2017-01-07 19:52] VITALS: BP 135/77; RESP 19
[2017-01-08] MEDS: PIPER-TAZO 3.375 GM IV (PMX) 50 ML IVPB SCH ×2 (00:28→06:06)
[2017-01-08 01:52] VITALS: BP 130/63; RESP 18
[2017-01-08] MEDS: SOD CHLORIDE 0.9% 1,000 ML IV SCH (07:52)
[2017-01-08 08:13] VITALS: BP 131/72; RESP 16
[2017-01-08] MEDS: FAMOTIDINE 20 MG INJ IV SCH (08:56)
--- NOTE | 2017-01-08 10:03 | PN ---
Date/Time of Note Date/Time of Note DATE: 01/08/17 TIME: 10:01 Assessment/Plan VTE Prophylaxis VTE Prophylaxis Intervention: ambulation Lines/Catheters IV Catheter Type (from Nrs): Peripheral IV Urinary Cath still in place: No Assessment/Plan Assessment/Plan 1. Symptomatic cholelithiasis s/p lab ashley - Surgery on board and consultation appreciated. Okay for discharge with follow up in 1-2 weeks - Patient tolerating diet well and had Bm this am 2. Transaminase elevation with hyperbilirubinemia, likely secondary to #1- improving - MRCP did not reveal any choledocholithiasis - Hyperbilirubinemia resolved. LFTs have been trending downward - Follow-up with intraoperative liver biopsy - GI on board and consultation appreciated 3. Leukocytosis, likely secondary to #1. Resolved. 4. Hepatomegaly with fatty liver -Lifestyle modification advised. 5. Obesity -Weight reduction advised. 6. Disposition - medically stable for discharge home Subjective 24 Hr Interval Summary Free Text/Dictation Patient doing well and tolerating PO diet. Had Bm this am as well and passing gas. No acute overnight events and no worsening pain. at bedside. Exam/Review of Systems Vital Signs Vitals Vital Signs Date Time Temp Pulse Resp B/P Pulse Ox O2 Delivery O2 Flow Rate FiO2 01/08/17 08:13 98.5 77 16 131/72 95 01/06/17 16:48 Room Air Intake and Output 01/07/17 01/07/17 01/08/17 15:00 23:00 07:00 Intake Total 100 ml 1182 ml 1240 ml Balance 100 ml 1182 ml 1240 ml Exam General: resting comfortably, no acute distress Neck: supple, midline Cardiac: S1, S2 auscultated, regular rhythm and rate, no mumurs or gallop Pulmonary: Normal respiratory effort. Chest clear to auscultation bilaterally, no wheezing or crackles GI: no tenderness RUQ, soft,non- distended, no masses, no rebound tenderness or guarding. Bowel sounds active on all four quadrants Extremities: No cyanosis, clubbing, or edema. Pulses [2+] bilaterally. Full ROM on all four extremities. No focal weakness appreciated. Skin: Clean,dry, and intact. No ecchymosis, no rashes, or lesions Results Result Diagram: 01/08/1744401/08/17444 Results 24 hrs Laboratory Tests Test 01/08/17 04:45 White Blood Count 9.4 Red Blood Count 3.93 L Hemoglobin 11.6 L Hematocrit 35.8 L Mean Corpuscular Volume 91.1 Mean Corpuscular Hemoglobin 29.5 Mean Corpuscular Hemoglobin Concent 32.4 Red Cell Distribution Width 13.0 Platelet Count 308 Mean Platelet Volume 10.2 Neutrophils % 73.0 Lymphocytes % 18.2 Monocytes % 6.4 Eosinophils % 1.2 Basophils % 0.5 Nucleated Red Blood Cells % 0.0 Neutrophils # 6.9 Lymphocytes # 1.7 Monocytes # 0.6 Eosinophils # 0.1 Basophils # 0.1 Nucleated Red Blood Cells # 0.0 Sodium Level 145 H Potassium Level 3.5 Chloride Level 108 Carbon Dioxide Level 27 Anion Gap 14 Blood Urea Nitrogen 8 Creatinine 0.63 Glucose Level 130 Calcium Level 8.6 Total Bilirubin 0.6 Direct Bilirubin 0.00 Indirect Bilirubin 0.6 Aspartate Amino Transf (AST/SGOT) 92 H Alanine Aminotransferase (ALT/SGPT) 172 H Alkaline Phosphatase 195 H Total Protein 7.0 Albumin 3.8 Globulin 3.20 Albumin/Globulin Ratio 1.18 Medications Medications Current Medications Sodium Chloride (NS) 1,000 ml @ 80 mls/hr [id number] IV Last administered on 01/07 19:58; Admin Dose 80 MLS/HR; Start 01/03/17 at 02:52 Ondansetron HCl (Zofran Inj) 4 mg Q6H PRN IV NAUSEA AND/OR VOMITING; Start at 03:00 Acetaminophen (Tylenol Tab) 650 mg Q6H PRN PO PAIN LEVEL 1-3 OR FEVER; Start 01/03/17 at 03:00 Hydromorphone HCl (Dilaudid) 0.5 mg Q4H PRN IV SEVERE PAIN LEVEL 7-10; Start 01/03/17 at 03:00 Famotidine (Pepcid Iv) 20 mg Q12 IV Last administered on 01/08/17 08:56; Admin Dose 20 MG; Start 01/04/17 at 21:00 Morphine Sulfate (morphine) 2 mg Q2H PRN IV PAIN LEVEL 7-10 Last administered on 01/07/17 00:13; Admin Dose 2 MG; Start 01/06/17 at 16:30 Acetaminophen/ Hydrocodone Bitart 1 tab 1 tab Q6H PRN PO PAIN LEVEL 4-6 Last administered on 01/07/17 05:14; Admin Dose 1 TAB; Start 01/06/17 at 16:30 Piperacillin Sod/ Tazobactam Sod (Zosyn 3.375gm/ 50 ml (Pmx)) 50 ml @ 200 mls/ hr Q6 IVPB Last administered on 01/08/17 06:06; Admin Dose 200 MLS/HR; Start 01/07/17 at 18:00 JAMEE SAVAGE MD Jan 08, 2017 10:03
[2017-01-08] MEDS ORDERED: ACET325T40 PO (10:05)
--- NOTE | 2017-01-08 10:10 | PDOCDIS ---
Discharge Instructions DIAGNOSIS Discharge Diagnosis 1. Symptomatic cholelithiasis s/p lab ashley 2. Transaminase elevation with hyperbilirubinemia, likely secondary to #1- improving 3. Leukocytosis, likely secondary to #1. Resolved. 4. Hepatomegaly with fatty liver 5. Obesity CONDITION Patient Condition: Good HOME CARE INSTRUCTIONS: Diet Instructions: Low Fat /CholesterolSpecial Diet: avoid greasy, fried foods ACTIVITY: Activity Restrictions: No Restrictions FOLLOW UP/APPOINTMENTS Follow-up Plan 1. Follow up with Dr. Sorto, Surgery in 1-2 weeks 2. Follow up with GI as well for follow up of liver biopsy 3. Avoid heavy lifting for the next week 4. Avoid greasy foods or foods high in cholesterol 5. Increase your physical activity as tolerated 6. If you experiencing any worsening symptoms, return to the ED 7. Follow up with your Primary care physician in 1 week REFERRALS Other Referrals Nahun Sorto MD Specialty: General Surgery Office Address [address] [place] [address] Office Nathaniel Srivastava MD Specialty: Gastroenterology Office Address [address] [place] [address] Office JAMEE SAVAGE MD Jan 08, 2017 10:10
--- NOTE | 2017-01-08 10:10 | PDOCDIS ---
Discharge Instructions DIAGNOSIS Discharge Diagnosis 1. Symptomatic cholelithiasis s/p lab ashley 2. Transaminase elevation with hyperbilirubinemia, likely secondary to #1- improving 3. Leukocytosis, likely secondary to #1. Resolved. 4. Hepatomegaly with fatty liver 5. Obesity CONDITION Patient Condition: Good HOME CARE INSTRUCTIONS: Diet Instructions: Low Fat /CholesterolSpecial Diet: avoid greasy, fried foods ACTIVITY: Activity Restrictions: No Restrictions FOLLOW UP/APPOINTMENTS Follow-up Plan 1. Follow up with Dr. Sorto, Surgery in 1-2 weeks 2. Follow up with GI as well for follow up of liver biopsy 3. Avoid heavy lifting for the next week 4. Avoid greasy foods or foods high in cholesterol 5. Increase your physical activity as tolerated 6. If you experiencing any worsening symptoms, return to the ED 7. Follow up with your Primary care physician in 1 week REFERRALS Other Referrals Nahun Sorto MD Specialty: General Surgery Office Address [id number] [place] [address] Office Nathaniel Srivastava MD Specialty: Gastroenterology Office Address [id number] [place] [address] Office JAMEE SAVAGE MD Jan 08, 2017 10:10
--- NOTE | 2017-01-08 10:10 | PDOCDIS ---
Discharge Instructions DIAGNOSIS Discharge Diagnosis 1. Symptomatic cholelithiasis s/p lab ashley 2. Transaminase elevation with hyperbilirubinemia, likely secondary to #1- improving 3. Leukocytosis, likely secondary to #1. Resolved. 4. Hepatomegaly with fatty liver 5. Obesity CONDITION Patient Condition: Good HOME CARE INSTRUCTIONS: Diet Instructions: Low Fat /CholesterolSpecial Diet: avoid greasy, fried foods ACTIVITY: Activity Restrictions: No Restrictions FOLLOW UP/APPOINTMENTS Follow-up Plan 1. Follow up with Dr. Sorto, Surgery in 1-2 weeks 2. Follow up with GI as well for follow up of liver biopsy 3. Avoid heavy lifting for the next week 4. Avoid greasy foods or foods high in cholesterol 5. Increase your physical activity as tolerated 6. If you experiencing any worsening symptoms, return to the ED 7. Follow up with your Primary care physician in 1 week REFERRALS Other Referrals Nahun Sorto MD Specialty: General Surgery Office Address [address] [place] [address] Office Nathaniel Srivastava MD Specialty: Gastroenterology Office Address [address] [place] [address] Office JAMEE SAVAGE MD Jan 08, 2017 10:10
--- NOTE | 2017-01-08 10:15 | DS ---
Date/Time of Note Date/Time of Note DATE: 01/08/17 TIME: 10:14 Discharge Summary Admission/Discharge Info Admit Date/Time Jan 03, 2017 at 01:33 Discharge Date/Time Discharge Diagnosis 1. Symptomatic cholelithiasis s/p lab ashley 2. Transaminase elevation with hyperbilirubinemia, likely secondary to #1- improving 3. Leukocytosis, likely secondary to #1. Resolved. 4. Hepatomegaly with fatty liver 5. Obesity Patient Condition: Good Consults Surgery- Dr. Sorto GI- Dr. Rawlsov Procedures 1. 3 port laparoscopic cholecystectomy 2. Laparoscopic liver wedge resection biopsy PROCEDURE: US Abdomen (right upper quadrant). CLINICAL INDICATION: Right upper quadrant abdomen pain. TECHNIQUE: Multiple real-time longitudinal and transverse images of the right upper quadrant of the abdomen were acquired utilizing a curved array transducer. Images were reviewed on a high-resolution PACS workstation. COMPARISON: None FINDINGS: The liver is enlarged and diffusely increased in echogenicity. There is no focal hepatic lesion. Color Doppler and pulsed Doppler sonography demonstrate normal antegrade flow in the portal vein. Gallstones are present in the gallbladder. There is no gallbladder wall thickening. There is no pericholecystic fluid collection. The bile ducts are normal with the common bile duct measuring 5.3 mm in diameter. The visualized portions of the pancreas are unremarkable with obscuration of the tail of the pancreas. No free fluid is present. The right kidney measures 10.1 cm. There is normal echogenicity of the right kidney. There is no perinephric fluid collection. No hydronephrosis, mass, or calculus is seen. IMPRESSION: 1. Hepatomegaly. 2. Fatty metamorphosis of the liver. 3. Gallstones in the gallbladder. No evidence of cholecystitis. 4. Otherwise unremarkable right upper quadrant abdomen ultrasound. PROCEDURE: MR Abdomen. CLINICAL INDICATION: Abdominal pain. TECHNIQUE: MRI abdomen without contrast was performed on the a high-resolution , high Yadi field strength scanner. Patient was examined without IV contrast. Images were reviewed on a high-resolution PACS workstation. COMPARISON: Correlation with ultrasound from 01/02/2017. FINDINGS: MRI Abdomen: The liver is enlarged measuring 21.5 cm in size and homogeneous in signal intensity. There is normal signal intensity within the liver. No liver mass lesion or intrahepatic biliary dilatation is seen. Several stones are present within the gallbladder, ranging in size from 4 - 24 mm. There is gallbladder wall edema. No significant pericholecystic fluid is seen. The biliary tree is not dilated. No intrahepatic nor extrahepatic biliary dilatation is present. The spleen is normal in size and homogeneous in signal intensity. The stomach is partially collapsed but grossly unremarkable. The pancreas, as visualized, is equally unremarkable. No pancreatic lesion is seen. The adrenal glands and kidneys are symmetrically normal. The aorta is of normal caliber. There is no retroperitoneal lymphadenopathy. The bowel and mesentery, as visualized, are all unremarkable. IMPRESSION: 1. Cholelithiasis with gallbladder wall edema. The findings may represent acute calculus cholecystitis in the correct clinical setting. No evidence of choledocholithiasis or biliary obstruction. 2. Hepatomegaly. PROCEDURE: XR Chest. CLINICAL INDICATION: Preoperative TECHNIQUE: Single frontal view of the chest was obtained COMPARISON: None FINDINGS: No pleural effusion or pneumothorax. No consolidation. Top normal cardiac silhouette. Calcified aortic arch suggestive of chronic systemic hypertension. No acute osseous abnormality. IMPRESSION: No acute cardiopulmonary disease. Mild cardiomegaly. Hx of Present Illness Chief complaint: Right upper quadrant abdominal pain This is a 56-year-old female comes with right upper quadrant radiating to the back since 700. Emesis 1. Non-bilious. Denies fevers but did have some chills. Pain is mild to moderate intensity with no radiations. Patient says she has had this pain on and off in the past few weeks. Has tried Tylenol with no relief. Patient states that she had a similar pain before but it was 3 months ago. Denies any yellow color of the skin or the eyes. Allergies: NKDA Medications: None Hospital Course Patient was admitted for further workup and imaging studies were obtained. US RUQ showed cholelithiasis but no cholecystitis. MRCP was performed which showed acute calculus cholecystitis in the correct clinical setting. No evidence of choledocholithiasis or biliary obstruction. Surgery consultation was placed as well as GI. Patient was started on IV antibiotics, IVF and kept NPO. Patient decided to proceed with surgical intervention. GI evaluated patients transaminitis and did not need to proceed with ERCP since MRCP did not show any CBD dilation. Patient underwent lap ashley and also had wedge biopsy of liver performed given abnormal appearance on imaging studies. Patient had no complications during surgery and was tolerating PO diet and moving bowels before discharge home with instructions to follow up with GI and Surgery. Her transaminitis was trending downward and hyperbilirubinemia resolved prior to discharge. Home Meds Active Scripts Acetaminophen (MAPAP) 325 Mg Tablet, 650 MG PO Q6H Y for PAIN LEVEL 1-3 OR FEVER for 30 Days, #90 TAB Prov:JAMEE SAVAGE MD 01/08/17 Reported Medications [place]-3 Acid Ethyl Esters (Lovaza) 1 Gm Capsule, 4 GM PO DAILY, CAP 01/03/17 Multivitamins* (Theragran*) 1 Tab Tab, 1 TAB PO DAILY, TAB 01/03/17 Follow-up Plan 1. Follow up with Dr. Sorto, Surgery in 1-2 weeks 2. Follow up with GI as well for follow up of liver biopsy 3. Avoid heavy lifting for the next week 4. Avoid greasy foods or foods high in cholesterol 5. Increase your physical activity as tolerated 6. If you experiencing any worsening symptoms, return to the ED 7. Follow up with your Primary care physician in 1 week Primary Care Provider Not On Staff Doctor Time spent on discharge: > 30 minutes Pending Labs Laboratory Tests Test 01/08/17 04:45 White Blood Count 9.410^3/ul (4.8-10.8) Red Blood Count 3.9310^6/ul (4.20-5.40) Hemoglobin 11.6g/dl (12.0-16.0) Hematocrit 35.8% (37.0-47.0) Mean Corpuscular Volume 91.1fl (82.0-101.0) Mean Corpuscular Hemoglobin 29.5pg (29.0-33.0) Mean Corpuscular Hemoglobin Concent 32.4g/dl (32.0-37.0) Red Cell Distribution Width 13.0% (11.5-14.5) Platelet Count 92229^3/UL (140-415) Mean Platelet Volume 10.2fl (7.4-10.4) Neutrophils % 73.0% (39.0-77.0) Lymphocytes % 18.2% (15.0-51.0) Monocytes % 6.4% (0.0-11.0) Eosinophils % 1.2% (0.0-7.0) Basophils % 0.5% (0.0-2.0) Nucleated Red Blood Cells % 0.0/100WBC (0.0-0.0) Neutrophils # 6.910^3/ul (1.6-7.5) Lymphocytes # 1.710^3/ul (0.8-2.9) Monocytes # 0.610^3/ul (0.3-0.9) Eosinophils # 0.110^3/ul (0.0-0.5) Basophils # 0.110^3/ul (0.0-0.1) Nucleated Red Blood Cells # 0.010^3/ul (0.0-0.0) Sodium Level 145mmol/L (135-144) Potassium Level 3.5mmol/L (3.5-5.1) Chloride Level 108mmol/L (97-110) Carbon Dioxide Level 27mmol/L (21-31) Anion Gap 14 (8-16) Blood Urea Nitrogen 8mg/dl (7-20) Creatinine 0.63mg/dl (0.44-1.00) Glucose Level 130mg/dl (70-220) Calcium Level 8.6mg/dl (8.4-10.2) Total Bilirubin 0.6mg/dl (0.2-1.3) Direct Bilirubin 0.00mg/dl (0.00-0.20) Indirect Bilirubin 0.6mg/dl (0-1.1) Aspartate Amino Transf (AST/SGOT) 92IU/L (15-46) Alanine Aminotransferase (ALT/SGPT) 172IU/L (13-69) Alkaline Phosphatase 195IU/L (42-121) Total Protein 7.0g/dl (6.1-8.1) Albumin 3.8g/dl (3.3-4.9) Globulin 3.20g/dl (1.3-3.2) Albumin/Globulin Ratio 1.18 JAMEE SAVAGE MD Jan 08, 2017 10:15
== END 2017-01-08 11:20 | disposition home or self-care (01) | DRG 407 ==
LOC: E/R 19:47 → PP2 01-03 01:33
PROVIDERS: ADMIT Family Medicine; ATTEND Family Medicine
PROC: 0FB04ZZ Excision of Liver, Percutaneous Endoscopic Approach (ICD-10-PCS; 2017-01-06)
PROC: 0FT44ZZ Resection of Gallbladder, Percutaneous Endoscopic Approach (ICD-10-PCS; principal; 2017-01-06 14:00)
DX: K80.00 Calculus of gallbladder with acute cholecystitis without obstruction (principal); E66.01 Morbid (severe) obesity due to excess calories; K76.89 Other specified diseases of liver; E80.6 Other disorders of bilirubin metabolism; Z68.31 Body mass index [BMI] 31.0-31.9, adult; D72.829 Elevated white blood cell count, unspecified
CPT/HCPCS: 36415; 71010; 74181; 76705; 80053; 80061; 81001; 83036; 83690; 84443; 84484; 84703; 85025; 85610; 85730; 86704; 86709; 86803; 87340; 88304; 88307; 88313; 90686; 93005; 96374; 96375; C9113; J2175; J2270; J2405; J2543; J2795; J3010; J7030; J7040